=== PATIENT | male | born 1945 | race Two or more races ===

== ENCOUNTER 2021-07-02 14:07 | Inpatient (IN) | payer OTHER, MEDICAID ==
[~2021-07-02] VITALS: Ht 160 cm; Wt 54.4 kg
[2021-07-02] MEDS ORDERED: SODIUM CHLORIDE 0.9% 500 ML IV ONE (14:15)
[2021-07-02 15:36] LABS: Basophils # (auto) 0 10 ^3/uL (0-0.2); Basophils % (auto) 0.4 % (0.0-2.0); Eosinophils # (auto) 0 10 ^3/uL (0-0.8); Eosinophils % (auto) 0.4 % (0.0-7.0); Hematocrit 35.4 % (41.0-53.0); Hemoglobin 12.3 g/dL (13.5-17.5); Lymphocytes # (auto) 0.3 10 ^3/uL (0.4-5.4); Lymphocytes % (auto) 3.9 % (10.0-50.0); Mean Corpuscular Hgb Conc. 34.8 g/dL (32.0-36.0); Mean Corpuscular Volume 91.8 fL (80.0-100.0); Monocytes # (auto) 0.7 10 ^3/uL (0-1.3); Monocytes % (auto) 7.9 % (0.0-12.0); Neutrophils # (auto) 7.3 10 ^3/uL (1.6-8.6); Neutrophils % (auto) 87.4 % (37.0-80.0); Red Blood Cells 3.86 10^6/uL (4.5-5.90); Red Cell Distribution Width 13.8 % (11.8-14.3); White Blood Cell 8.4 10^3/uL (4.4-10.8)
[2021-07-02 15:53] LABS: INR 1.24 (0.9-1.15); Partial Thromboplastin Time 29.7 sec (23.6-33.0)
[2021-07-02 16:03] LABS: Calcium 9.1 mg/dL (8.5-10.1)
[2021-07-02 16:08] LABS: Bilirubin, Total 0.5 mg/dL (0.2-1.0); Total Protein 7.1 g/dL (6.4-8.2)
[2021-07-02 16:13] LABS: Urine Bacteria NONE SEEN /hpf (None Seen); Urine Blood 1+ /uL (Negative); Urine Mucus FEW (None Seen); Urine Specific Gravity 1.019 (1.001-1.035); Urine WBC 6 /hpf (0 - 3)
[2021-07-02] MEDS ORDERED: MORPHINE SULFATE INJECTION 2 MG/ML SYRG IV PRN (21:00)
[2021-07-02] MEDS ORDERED: ALBUMIN 5% 250 ML IV ONE (21:00)
[2021-07-02] MEDS ORDERED: ACETAMINOPHEN 325 MG TAB PO PRN (21:00)
[2021-07-02] MEDS ORDERED: cefTRIAXone 1GM/50ML D5W 50 ML IV ONE (21:00)
[2021-07-02] MEDS ORDERED: NITROGLYCERIN 0.4 MG SL TAB SL PRN (21:00)
[2021-07-02] MEDS ORDERED: ONDANSETRON HCL 4 MG/2 ML VIAL IV PRN (21:00)
[2021-07-02] MEDS ORDERED: SODIUM CHLORIDE 0.9% 1,000 ML IV ONE (21:00)
[2021-07-03] VITALS (51 sets, daily range): BP systolic 104–203; BP diastolic 29–115
[2021-07-03 05:50] LABS: Basophils # (auto) 0.1 10 ^3/uL (0-0.2); Basophils % (auto) 0.8 % (0.0-2.0); Eosinophils # (auto) 0.3 10 ^3/uL (0-0.8); Eosinophils % (auto) 3.9 % (0.0-7.0); Hematocrit 33.5 % (41.0-53.0); Hemoglobin 11.8 g/dL (13.5-17.5); Lymphocytes # (auto) 1.6 10 ^3/uL (0.4-5.4); Lymphocytes % (auto) 20.4 % (10.0-50.0); Mean Corpuscular Hemoglobin 32.1 pg (28.0-32.0); Mean Corpuscular Hgb Conc. 35.4 g/dL (32.0-36.0); Mean Corpuscular Volume 90.8 fL (80.0-100.0); Monocytes # (auto) 1.4 10 ^3/uL (0-1.3); Monocytes % (auto) 17.9 % (0.0-12.0); Neutrophils # (auto) 4.4 10 ^3/uL (1.6-8.6); Nucleated Red Blood Cells % 0.1 %; Red Blood Cells 3.69 10^6/uL (4.5-5.90); Red Cell Distribution Width 13.8 % (11.8-14.3); White Blood Cell 7.8 10^3/uL (4.4-10.8)
[2021-07-03 05:58] LABS: Calcium 9.5 mg/dL (8.5-10.1)
[2021-07-03 06:00] LABS: BUN/Creatinine Ratio 12.7
[2021-07-03] MEDS: CLOPIDOGREL BISULFATE 75 MG TAB PO SCH (07:46)
[2021-07-03] MEDS: DOPamine 1600MCG/ML D5W 250 ML IV SCH (07:46)
[2021-07-03] MEDS ORDERED: DILT60TA PO (09:57)
[2021-07-03] MEDS ORDERED: ASPI-543 PO (10:00)
[2021-07-03] MEDS ORDERED: ENOXAPARIN SOD 40 MG/0.4 ML SYRINGE SC SCH (10:00)
[2021-07-03] MEDS ORDERED: CHOL20007 OR (10:00)
[2021-07-03] MEDS ORDERED: CLOP75TA70 PO (10:00)
[2021-07-03] MEDS ORDERED: RISP1TAB63 PO ×2 (10:00)
[2021-07-03] MEDS ORDERED: DIVA250T4 PO (10:00)
[2021-07-03] MEDS ORDERED: cefTRIAXone 1GM/50ML D5W 50 ML IV SCH (22:00)
[2021-07-04] VITALS (48 sets, daily range): BP systolic 131–183; BP diastolic 66–104
[2021-07-04] MEDS: hydrALAZINE HCL 20 MG/ML VL IV PRN ×2 (02:48→12:26)
[2021-07-04] MEDS: DOPamine 1600MCG/ML D5W 250 ML IV SCH (05:26)
[2021-07-04] MEDS: CLOPIDOGREL BISULFATE 75 MG TAB PO SCH (09:57)
[2021-07-04] MEDS: amLODIPine BESYLATE 5 MG TAB PO SCH (11:28)
[2021-07-05] VITALS (20 sets, daily range): BP systolic 116–168; BP diastolic 67–104
[2021-07-05] MEDS: hydrALAZINE HCL 20 MG/ML VL IV PRN (04:41)
[2021-07-05] MEDS: CLOPIDOGREL BISULFATE 75 MG TAB PO SCH (09:56)
[2021-07-05] MEDS: amLODIPine BESYLATE 5 MG TAB PO SCH (09:56)
[2021-07-06 05:00] VITALS: BP 143/75
[2021-07-06 09:00] VITALS: BP 127/65
[2021-07-06] MEDS: CLOPIDOGREL BISULFATE 75 MG TAB PO SCH (10:12)
[2021-07-06] MEDS: amLODIPine BESYLATE 5 MG TAB PO SCH (10:12)
[2021-07-06] MEDS ORDERED: AML5T PO (11:11)
[2021-07-06 13:31] VITALS: BP 149/75
[2021-07-06 13:56] VITALS: BP 140/77
== END 2021-07-06 13:40 | disposition home or self-care (01) | DRG 310 ==
LOC: EDBD 14:07 → ER 14:07 → TELE 20:57 → ICU WEST 07-03 07:46 → TELE-EAST 07-05 11:36
PROVIDERS: ADMIT Nurse Practitioner; ATTEND Internal Medicine
DX: R00.1 Bradycardia, unspecified (principal); I95.9 Hypotension, unspecified; R50.9 Fever, unspecified; F03.90 Unspecified dementia, unspecified severity, without behavioral disturbance, psychotic disturbance, mood disturbance, and anxiety; F31.9 Bipolar disorder, unspecified; I10 Essential (primary) hypertension; J44.9 Chronic obstructive pulmonary disease, unspecified; Z86.73 Personal history of transient ischemic attack (TIA), and cerebral infarction without residual deficits; Z20.822 Contact with and (suspected) exposure to COVID-19
CPT/HCPCS: 36415; 70450; 71045; 80048; 80053; 80164; 81001; 83605; 83735; 84484; 85025; 85610; 85730; 87040; 87081; 93005; 93306; 96361; 96365; 96368; 97116; 97163; 97530; G0378; J0696

== ENCOUNTER 2021-10-04 09:45 | Emergency (ER) | payer OTHER, MEDICAID ==
[~2021-10-04] VITALS: Ht 167.6 cm; Wt 63.5 kg
[~2021-10-04 09:45] MED LIST: AML5T PO; ASPI-543 PO; CHOL20007 OR; CLOP75TA70 PO; DILT60TA PO; DIVA250T4 PO; RISP1TAB63 PO
[2021-10-04 11:37] LABS: Urine Bacteria NONE SEEN /hpf (None Seen); Urine Blood 3+ /uL (Negative); Urine WBC 46 /hpf (0 - 3)
[2021-10-04] MEDS ORDERED: cefTRIAXone 1GM/50ML D5W 50 ML IV ONE (21:45)
[2021-10-04] MEDS ORDERED: NITR-87 PO (21:50)
[2021-10-04] MEDS ORDERED: cefTRIAXone SOD 1,000 MG VL IM ONE (22:45)
[2021-10-05 07:30] VITALS: BP 131/77
== END 2021-10-05 08:30 | disposition home or self-care (01) ==
LOC: ER 09:45 → EDBD 09:45 → ER 10-05 08:22
DX: N12 Tubulo-interstitial nephritis, not specified as acute or chronic (principal); K80.20 Calculus of gallbladder without cholecystitis without obstruction; J44.9 Chronic obstructive pulmonary disease, unspecified; I10 Essential (primary) hypertension; Z86.73 Personal history of transient ischemic attack (TIA), and cerebral infarction without residual deficits
CPT/HCPCS: 74176; 81001; 96372; 99285; J0696

== ENCOUNTER 2022-10-08 12:12 | Inpatient (IN) | payer OTHER, MEDICAID ==
[~2022-10-08] VITALS: Ht 170.2 cm; Wt 55.5 kg
[~2022-10-08 12:12] MED LIST changes: +NITR-87 PO
[2022-10-08 13:00] VITALS: PULSE 80; RESP 25; O2SAT 100
[2022-10-08] MEDS ORDERED: SODIUM CHLORIDE 0.9% 1,550 ML IV ONE (13:45)
[2022-10-08] MEDS ORDERED: levoFLOXacin 500MG 100 ML IV ONE (13:45)
[2022-10-08 14:43] LABS: Basophils # (auto) 0 10 ^3/uL (0-0.2); Basophils % (auto) 0.2 % (0.0-2.0); Eosinophils # (auto) 0 10 ^3/uL (0-0.8); Hematocrit 35.4 % (41.0-53.0); Hemoglobin 11.7 g/dL (13.5-17.5); Lymphocytes # (auto) 1.1 10 ^3/uL (0.4-5.4); Mean Corpuscular Hemoglobin 31.4 pg (28.0-32.0); Mean Corpuscular Hgb Conc. 33.1 g/dL (32.0-36.0); Mean Corpuscular Volume 94.7 fL (80.0-100.0); Monocytes # (auto) 2.5 10 ^3/uL (0-1.3); Monocytes % (auto) 11.5 % (0.0-12.0); Neutrophils # (auto) 18.2 10 ^3/uL (1.6-8.6); Neutrophils % (auto) 83.3 % (37.0-80.0); Red Blood Cells 3.74 10^6/uL (4.5-5.90); Red Cell Distribution Width 13.2 % (11.8-14.3); White Blood Cell 21.9 10^3/uL (4.4-10.8)
[2022-10-08 14:55] LABS: INR 1.22 (0.9-1.15)
[2022-10-08 15:00] LABS: Albumin 2.3 g/dL (3.4-5.0); BUN/Creatinine Ratio 30.8 (10.0-20.0); Calcium 9.1 mg/dL (8.5-10.1)
[2022-10-08 15:03] LABS: Bilirubin, Total 0.3 mg/dL (0.2-1.0); Total Protein 5.9 g/dL (6.4-8.2)
[2022-10-08 15:27] LABS: Urine Bacteria NONE SEEN /hpf (None Seen); Urine Blood Negative /uL (Negative); Urine Hyaline Cast FEW /lpf (0 - 2); Urine Mucus FEW (None Seen); Urine Specific Gravity 1.029 (1.001-1.035); Urine WBC 5 /hpf (0 - 3)
[2022-10-08 15:32] LABS: Alcohol, Urine < 3.0 mg/dL (0-10); Amphetamine Screen, Urine NEGATIVE (NEGATIVE); Barbiturate Scree,Urine NEGATIVE (NEGATIVE); Benzodiazephine Screen, Urine NEGATIVE (NEGATIVE); Cannabinoid Screen, Urine NEGATIVE (NEGATIVE); Cocaine Screen, Urine NEGATIVE (NEGATIVE); Opiate Scree,Urine NEGATIVE (NEGATIVE); Phencyclidine Screen, Urine NEGATIVE (NEGATIVE)
[2022-10-08] MEDS ORDERED: VANCOMYCIN 1GM/250ML 250 ML IV ONE (17:00)
[2022-10-08] MEDS: NOREPINEPHRINE 8 MG/250ML KIT 250 ML IV SCH (17:32)
[2022-10-08 19:25] VITALS: RESP 20; O2SAT 96
[2022-10-08] MEDS ORDERED: SODIUM CHLORIDE 0.9% 1,000 ML IV SCH (21:15)
[2022-10-08] MEDS ORDERED: IPRATROPIUM BROM 0.5 MG/2.5ML INH SOL NEB PRN (21:15)
[2022-10-08] MEDS ORDERED: ONDANSETRON HCL 4 MG/2 ML VIAL IV PRN (21:15)
[2022-10-08] MEDS ORDERED: MORPHINE SULFATE INJ 2 MG/ml SYRG IV PRN (21:15)
[2022-10-08] MEDS ORDERED: ALBUTEROL SULF 2.5 MG/0.5ML(0.5%) NEB SOLN NEB PRN (21:15)
[2022-10-08] MEDS ORDERED: NITROGLYCERIN 0.4 MG SL TAB SL PRN (21:15)
[2022-10-08] MEDS: ATORVASTATIN 20 MG TAB PO SCH (22:43)
[2022-10-08 23:00] VITALS: BP 132/81; PULSE 88; RESP 28; O2SAT 96
[2022-10-09] VITALS (102 sets, daily range): BP systolic 79–155; BP diastolic 31–82; PULSE 61–112; RESP 15–52; TEMP 97.5–98.3; O2SAT 90–100
[2022-10-09 02:39] LABS: Hematocrit 36.4 % (41.0-53.0); Hemoglobin 11.7 g/dL (13.5-17.5)
[2022-10-09 05:55] LABS: Potassium 4.1 mmol/L (3.5-5.1)
[2022-10-09 05:58] LABS: Basophils # (auto) 0 10 ^3/uL (0-0.2); Basophils % (auto) 0.2 % (0.0-2.0); Eosinophils # (auto) 0 10 ^3/uL (0-0.8); Eosinophils % (auto) 0.2 % (0.0-7.0); Hematocrit 33.2 % (41.0-53.0); Lymphocytes # (auto) 0.8 10 ^3/uL (0.4-5.4); Lymphocytes % (auto) 3.9 % (10.0-50.0); Mean Corpuscular Hemoglobin 31.4 pg (28.0-32.0); Mean Corpuscular Hgb Conc. 33.1 g/dL (32.0-36.0); Mean Corpuscular Volume 94.9 fL (80.0-100.0); Monocytes % (auto) 10.2 % (0.0-12.0); Neutrophils # (auto) 16.5 10 ^3/uL (1.6-8.6); Neutrophils % (auto) 85.5 % (37.0-80.0); Red Cell Distribution Width 13.2 % (11.8-14.3); White Blood Cell 19.3 10^3/uL (4.4-10.8)
[2022-10-09 06:07] LABS: Albumin 1.8 g/dL (3.4-5.0); BUN/Creatinine Ratio 37.7 (10.0-20.0); Bilirubin, Total 0.4 mg/dL (0.2-1.0); Calcium 9.2 mg/dL (8.5-10.1); Total Protein 5.8 g/dL (6.4-8.2)
[2022-10-09] MEDS: CLOPIDOGREL BISULFATE 75 MG TAB PO SCH ×2 (08:11→08:24)
[2022-10-09] MEDS: ASPirin 81 mg TAB PO SCH ×2 (08:12→08:24)
[2022-10-09] MEDS ORDERED: cefTRIAXone 1GM/50ML D5W 50 ML IV SCH (09:00)
[2022-10-09] MEDS ORDERED: dilTIAZem 120MG ER CAP PO SCH (10:00)
[2022-10-09] MEDS ORDERED: PANTOPRAZOLE 40 MG TAB PO SCH (10:00)
[2022-10-09] MEDS ORDERED: amLODIPine BESYLATE 5 MG TAB PO SCH (10:00)
[2022-10-09] MEDS ORDERED: risperiDONE 1 MG TAB PO SCH (10:00)
[2022-10-09] MEDS ORDERED: PANT40TA2 PO (10:44)
[2022-10-09] MEDS ORDERED: ALLO100T PO (11:00)
[2022-10-09] MEDS ORDERED: LIDOCAINE 2%HCL (LOCAL ANESTH.) INJ 10ml MDV ONE (12:10)
[2022-10-09] MEDS ORDERED: fentaNYL CITRATE 100 MCG/2 ML VL ONE (12:53)
[2022-10-09] MEDS: NOREPINEPHRINE 8 MG/250ML KIT 250 ML IV SCH (14:33)
[2022-10-09] MEDS: IPRATROPIUM BROM 0.5 MG/2.5ML INH SOL NEB SCH (18:54)
[2022-10-09] MEDS: ALBUTEROL SULF 2.5 MG/0.5ML(0.5%) NEB SOLN NEB SCH (18:54)
[2022-10-09] MEDS: ATORVASTATIN 20 MG TAB PO SCH (22:00)
[2022-10-09] MEDS: risperiDONE 1 MG TAB PO SCH (22:00)
[2022-10-09] MEDS ORDERED: PIPERACILLIN-TAZOB 3.375GM 100 ML IV SCH (22:00)
[2022-10-10] VITALS (103 sets, daily range): BP systolic 68–186; BP diastolic 35–102; PULSE 53–126; RESP 11–44; TEMP 98.2–99.5; O2SAT 88–99
[2022-10-10] MEDS: ALBUTEROL SULF 2.5 MG/0.5ML(0.5%) NEB SOLN NEB SCH ×4 (00:44→18:10)
[2022-10-10] MEDS: IPRATROPIUM BROM 0.5 MG/2.5ML INH SOL NEB SCH ×4 (00:44→18:09)
[2022-10-10] MEDS: NOREPINEPHRINE 8 MG/250ML KIT 250 ML IV SCH ×2 (01:00→08:38)
[2022-10-10] MEDS: PIPERACILLIN-TAZOB 3.375GM 100 ML IV SCH ×3 (04:22→21:07)
[2022-10-10 04:52] LABS: Basophils # (auto) 0 10 ^3/uL (0-0.2); Basophils % (auto) 0.2 % (0.0-2.0); Eosinophils # (auto) 0 10 ^3/uL (0-0.8); Eosinophils % (auto) 0.2 % (0.0-7.0); Hematocrit 35.2 % (41.0-53.0); Hemoglobin 11.3 g/dL (13.5-17.5); Lymphocytes # (auto) 1.2 10 ^3/uL (0.4-5.4); Lymphocytes % (auto) 6.3 % (10.0-50.0); Mean Corpuscular Hemoglobin 30.5 pg (28.0-32.0); Mean Corpuscular Hgb Conc. 32.2 g/dL (32.0-36.0); Mean Corpuscular Volume 94.9 fL (80.0-100.0); Monocytes % (auto) 10.8 % (0.0-12.0); Neutrophils # (auto) 15.6 10 ^3/uL (1.6-8.6); Neutrophils % (auto) 82.5 % (37.0-80.0); Nucleated Red Blood Cells % 0.1 %; Red Blood Cells 3.71 10^6/uL (4.5-5.90); Red Cell Distribution Width 13.5 % (11.8-14.3); White Blood Cell 18.9 10^3/uL (4.4-10.8)
[2022-10-10 05:01] LABS: Albumin 1.8 g/dL (3.4-5.0); Calcium 9.2 mg/dL (8.5-10.1); Magnesium 2.3 mg/dL (1.6-2.6); Potassium 4.3 mmol/L (3.5-5.1)
[2022-10-10 05:04] LABS: BUN/Creatinine Ratio 45.6 (10.0-20.0); Bilirubin, Total 0.3 mg/dL (0.2-1.0); Phosphorus 1.8 mg/dL (2.5-4.90)
[2022-10-10] MEDS ORDERED: SODIUM PHOSPHATES 24 MEQ in SODIUM CHL 0.9% 100 ML IV ONE (10:15)
[2022-10-10] MEDS: ASPirin 81 mg TAB PO SCH (11:06)
[2022-10-10] MEDS: Ensure Enlive Strawberry 8oz Bottle PO SCH (18:26)
[2022-10-10] MEDS: Pro-Stat SF 30ml Vanilla PO SCH (18:26)
[2022-10-10 19:57] LABS: INR 1.16 (0.9-1.15)
[2022-10-10] MEDS: ACETAMINOPHEN 325 MG TAB PO PRN (20:46)
[2022-10-10] MEDS: ATORVASTATIN 20 MG TAB PO SCH (22:09)
[2022-10-10] MEDS: risperiDONE 1 MG TAB PO SCH (22:12)
[2022-10-11] VITALS (100 sets, daily range): BP systolic 78–144; BP diastolic 33–90; PULSE 53–110; RESP 15–48; TEMP 97.6–100.3; O2SAT 90–99
[2022-10-11] MEDS: IPRATROPIUM BROM 0.5 MG/2.5ML INH SOL NEB SCH ×4 (00:23→18:54)
[2022-10-11] MEDS: ALBUTEROL SULF 2.5 MG/0.5ML(0.5%) NEB SOLN NEB SCH ×4 (00:23→18:54)
[2022-10-11] MEDS: PIPERACILLIN-TAZOB 3.375GM 100 ML IV SCH ×3 (04:17→20:24)
[2022-10-11 04:57] LABS: Basophils # (auto) 0 10 ^3/uL (0-0.2); Basophils % (auto) 0.2 % (0.0-2.0); Eosinophils # (auto) 0.1 10 ^3/uL (0-0.8); Eosinophils % (auto) 1.2 % (0.0-7.0); Hematocrit 33.6 % (41.0-53.0); Hemoglobin 11.2 g/dL (13.5-17.5); Lymphocytes # (auto) 1.6 10 ^3/uL (0.4-5.4); Lymphocytes % (auto) 14.2 % (10.0-50.0); Mean Corpuscular Hgb Conc. 33.3 g/dL (32.0-36.0); Mean Corpuscular Volume 93.1 fL (80.0-100.0); Monocytes # (auto) 1.9 10 ^3/uL (0-1.3); Monocytes % (auto) 16.7 % (0.0-12.0); Neutrophils # (auto) 7.8 10 ^3/uL (1.6-8.6); Neutrophils % (auto) 67.7 % (37.0-80.0); Nucleated Red Blood Cells % 0.1 %; Red Blood Cells 3.61 10^6/uL (4.5-5.90); Red Cell Distribution Width 13.6 % (11.8-14.3); White Blood Cell 11.6 10^3/uL (4.4-10.8)
[2022-10-11 05:18] LABS: BUN/Creatinine Ratio 37.5 (10.0-20.0); Calcium 8.7 mg/dL (8.5-10.1); Potassium 3.2 mmol/L (3.5-5.1)
[2022-10-11] MEDS: NOREPINEPHRINE 8 MG/250ML KIT 250 ML IV SCH (09:54)
[2022-10-11] MEDS: Pro-Stat SF 30ml Vanilla PO SCH ×2 (09:56→18:56)
[2022-10-11] MEDS: Ensure Enlive Strawberry 8oz Bottle PO SCH ×2 (09:57→18:56)
[2022-10-11] MEDS: ASPirin 81 mg TAB PO SCH (09:59)
[2022-10-11] MEDS ORDERED: POTASSIUM CHL 20 Meq TABLET PO ONE (10:45)
[2022-10-11] MEDS ORDERED: FUROSEMIDE 20 MG/2 ML VIAL IV ONE (10:45)
[2022-10-11] MEDS ORDERED: POTASSIUM PHOSPHATE 26.4 MEQ in SODIUM CHL 0.9% 100 ML IV ONE (12:00)
[2022-10-11] MEDS ORDERED: ALBUMIN 25% 100 ML IV ONE (12:15)
[2022-10-11] MEDS ORDERED: LIDOCAINE 1% (LOCAL ANESTH.) PF 5ml SDV ID ONE (17:15)
[2022-10-11] MEDS: risperiDONE 1 MG TAB PO SCH (20:24)
[2022-10-11] MEDS: ATORVASTATIN 20 MG TAB PO SCH (20:25)
[2022-10-11] MEDS: SODIUM CHLOR 0.9% PF (SALINE LOCK) 10ML VIAL/SYR IV SCH (20:25)
[2022-10-12] VITALS (112 sets, daily range): BP systolic 75–211; BP diastolic 10–132; PULSE 66–117; RESP 18–42; TEMP 98.5–99.4; O2SAT 91–100
[2022-10-12] MEDS: NOREPINEPHRINE 8 MG/250ML KIT 250 ML IV SCH ×2 (00:12→19:58)
[2022-10-12] MEDS: ALBUTEROL SULF 2.5 MG/0.5ML(0.5%) NEB SOLN NEB SCH ×4 (00:13→19:27)
[2022-10-12] MEDS: IPRATROPIUM BROM 0.5 MG/2.5ML INH SOL NEB SCH ×4 (00:13→19:27)
[2022-10-12] MEDS: PIPERACILLIN-TAZOB 3.375GM 100 ML IV SCH ×3 (04:05→19:57)
[2022-10-12 04:49] LABS: Basophils # (auto) 0 10 ^3/uL (0-0.2); Basophils % (auto) 0.4 % (0.0-2.0); Eosinophils # (auto) 0.1 10 ^3/uL (0-0.8); Eosinophils % (auto) 1.3 % (0.0-7.0); Hematocrit 32.7 % (41.0-53.0); Lymphocytes # (auto) 1.3 10 ^3/uL (0.4-5.4); Lymphocytes % (auto) 12.5 % (10.0-50.0); Mean Corpuscular Hemoglobin 31.4 pg (28.0-32.0); Mean Corpuscular Hgb Conc. 33.8 g/dL (32.0-36.0); Mean Corpuscular Volume 92.9 fL (80.0-100.0); Monocytes # (auto) 1.9 10 ^3/uL (0-1.3); Monocytes % (auto) 17.9 % (0.0-12.0); Neutrophils # (auto) 7.2 10 ^3/uL (1.6-8.6); Neutrophils % (auto) 67.9 % (37.0-80.0); Red Blood Cells 3.52 10^6/uL (4.5-5.90); Red Cell Distribution Width 13.3 % (11.8-14.3); White Blood Cell 10.6 10^3/uL (4.4-10.8)
[2022-10-12 05:26] LABS: Albumin 2.2 g/dL (3.4-5.0); Calcium 8.8 mg/dL (8.5-10.1); Magnesium 2.3 mg/dL (1.6-2.6)
[2022-10-12 05:30] LABS: BUN/Creatinine Ratio 25.5 (10.0-20.0); Bilirubin, Total 0.6 mg/dL (0.2-1.0); Phosphorus 2.4 mg/dL (2.5-4.90)
[2022-10-12] MEDS: Pro-Stat SF 30ml Vanilla PO SCH ×2 (09:01→19:22)
[2022-10-12] MEDS: Ensure Enlive Strawberry 8oz Bottle PO SCH ×2 (09:01→19:22)
[2022-10-12] MEDS: ASPirin 81 mg TAB PO SCH (10:08)
[2022-10-12] MEDS: SODIUM CHLOR 0.9% PF (SALINE LOCK) 10ML VIAL/SYR IV SCH ×2 (10:09→19:58)
[2022-10-12] MEDS: ATORVASTATIN 20 MG TAB PO SCH (22:03)
[2022-10-12] MEDS: risperiDONE 1 MG TAB PO SCH (22:03)
[2022-10-13] VITALS (111 sets, daily range): BP systolic 84–164; BP diastolic 20–95; PULSE 70–123; RESP 22–51; TEMP 99–99.6; O2SAT 5–100
[2022-10-13] MEDS: ALBUTEROL SULF 2.5 MG/0.5ML(0.5%) NEB SOLN NEB SCH ×5 (00:03→23:53)
[2022-10-13] MEDS: IPRATROPIUM BROM 0.5 MG/2.5ML INH SOL NEB SCH ×5 (00:03→23:53)
[2022-10-13] MEDS: PIPERACILLIN-TAZOB 3.375GM 100 ML IV SCH ×3 (03:18→21:09)
[2022-10-13 05:33] LABS: Basophils # (auto) 0.1 10 ^3/uL (0-0.2); Basophils % (auto) 0.4 % (0.0-2.0); Eosinophils # (auto) 0.1 10 ^3/uL (0-0.8); Eosinophils % (auto) 1.2 % (0.0-7.0); Hematocrit 32.6 % (41.0-53.0); Hemoglobin 10.9 g/dL (13.5-17.5); Lymphocytes # (auto) 1.5 10 ^3/uL (0.4-5.4); Lymphocytes % (auto) 12.2 % (10.0-50.0); Mean Corpuscular Hemoglobin 31.2 pg (28.0-32.0); Mean Corpuscular Hgb Conc. 33.3 g/dL (32.0-36.0); Mean Corpuscular Volume 93.6 fL (80.0-100.0); Monocytes % (auto) 16.4 % (0.0-12.0); Neutrophils # (auto) 8.7 10 ^3/uL (1.6-8.6); Neutrophils % (auto) 69.8 % (37.0-80.0); Nucleated Red Blood Cells % 0.1 %; Red Blood Cells 3.48 10^6/uL (4.5-5.90); Red Cell Distribution Width 13.3 % (11.8-14.3); White Blood Cell 12.5 10^3/uL (4.4-10.8)
[2022-10-13 05:42] LABS: Calcium 8.8 mg/dL (8.5-10.1); Potassium 4.3 mmol/L (3.5-5.1)
[2022-10-13 05:46] LABS: Albumin 1.9 g/dL (3.4-5.0); BUN/Creatinine Ratio 24.6 (10.0-20.0); Magnesium 2.2 mg/dL (1.6-2.6)
[2022-10-13 05:47] LABS: Bilirubin, Total 0.4 mg/dL (0.2-1.0); Total Protein 5.8 g/dL (6.4-8.2)
[2022-10-13] MEDS: SODIUM CHLOR 0.9% PF (SALINE LOCK) 10ML VIAL/SYR IV SCH ×2 (09:35→21:09)
[2022-10-13] MEDS: ASPirin 81 mg TAB PO SCH (09:35)
[2022-10-13] MEDS: Ensure Enlive Strawberry 8oz Bottle PO SCH ×2 (09:37→18:46)
[2022-10-13] MEDS: Pro-Stat SF 30ml Vanilla PO SCH ×2 (09:37→18:46)
[2022-10-13] MEDS: ATORVASTATIN 20 MG TAB PO SCH (21:09)
[2022-10-13] MEDS: risperiDONE 1 MG TAB PO SCH (21:42)
[2022-10-14] VITALS (90 sets, daily range): BP systolic 88–133; BP diastolic 32–66; PULSE 69–114; RESP 20–85; TEMP 98.1–99.4; O2SAT 85–100
[2022-10-14] MEDS: PIPERACILLIN-TAZOB 3.375GM 100 ML IV SCH ×3 (03:51→21:14)
[2022-10-14 05:42] LABS: Basophils # (auto) 0.1 10 ^3/uL (0-0.2); Basophils % (auto) 0.4 % (0.0-2.0); Eosinophils # (auto) 0.1 10 ^3/uL (0-0.8); Hematocrit 31.9 % (41.0-53.0); Hemoglobin 10.4 g/dL (13.5-17.5); Lymphocytes # (auto) 1.5 10 ^3/uL (0.4-5.4); Lymphocytes % (auto) 11.5 % (10.0-50.0); Mean Corpuscular Hemoglobin 30.5 pg (28.0-32.0); Mean Corpuscular Hgb Conc. 32.5 g/dL (32.0-36.0); Mean Corpuscular Volume 93.6 fL (80.0-100.0); Monocytes # (auto) 1.7 10 ^3/uL (0-1.3); Monocytes % (auto) 12.5 % (0.0-12.0); Neutrophils # (auto) 9.9 10 ^3/uL (1.6-8.6); Neutrophils % (auto) 74.6 % (37.0-80.0); Red Blood Cells 3.41 10^6/uL (4.5-5.90); Red Cell Distribution Width 13.4 % (11.8-14.3); White Blood Cell 13.3 10^3/uL (4.4-10.8)
[2022-10-14 05:54] LABS: Albumin 1.7 g/dL (3.4-5.0); Calcium 8.9 mg/dL (8.5-10.1); Magnesium 2.4 mg/dL (1.6-2.6); Potassium 4.4 mmol/L (3.5-5.1)
[2022-10-14 05:59] LABS: BUN/Creatinine Ratio 36.5 (10.0-20.0); Bilirubin, Total 0.4 mg/dL (0.2-1.0); Total Protein 5.9 g/dL (6.4-8.2)
[2022-10-14] MEDS: IPRATROPIUM BROM 0.5 MG/2.5ML INH SOL NEB SCH ×3 (06:10→18:20)
[2022-10-14] MEDS: ALBUTEROL SULF 2.5 MG/0.5ML(0.5%) NEB SOLN NEB SCH ×3 (06:10→18:20)
[2022-10-14] MEDS: ASPirin 81 mg TAB PO SCH (09:15)
[2022-10-14] MEDS: Pro-Stat SF 30ml Vanilla PO SCH ×2 (09:17→18:00)
[2022-10-14] MEDS: SODIUM CHLOR 0.9% PF (SALINE LOCK) 10ML VIAL/SYR IV SCH ×2 (09:17→22:00)
[2022-10-14] MEDS: Ensure Enlive Strawberry 8oz Bottle PO SCH ×2 (09:17→18:00)
[2022-10-14] MEDS: NOREPINEPHRINE 8 MG/250ML KIT 250 ML IV SCH (11:10)
[2022-10-14] MEDS: risperiDONE 1 MG TAB PO SCH (22:53)
[2022-10-14] MEDS: ATORVASTATIN 20 MG TAB PO SCH (22:54)
[2022-10-15] VITALS (36 sets, daily range): BP systolic 90–149; BP diastolic 42–70; PULSE 64–115; RESP 18–41; TEMP 97.9–98.9; O2SAT 90–100
[2022-10-15] MEDS: ALBUTEROL SULF 2.5 MG/0.5ML(0.5%) NEB SOLN NEB SCH ×5 (00:06→23:43)
[2022-10-15] MEDS: IPRATROPIUM BROM 0.5 MG/2.5ML INH SOL NEB SCH ×5 (00:07→23:43)
[2022-10-15] MEDS: PIPERACILLIN-TAZOB 3.375GM 100 ML IV SCH ×3 (04:34→21:16)
[2022-10-15] MEDS: Ensure Enlive Strawberry 8oz Bottle PO SCH ×2 (08:00→18:46)
[2022-10-15] MEDS: ASPirin 81 mg TAB PO SCH (08:48)
[2022-10-15] MEDS: NOREPINEPHRINE 8 MG/250ML KIT 250 ML IV SCH (08:49)
[2022-10-15] MEDS: SODIUM CHLOR 0.9% PF (SALINE LOCK) 10ML VIAL/SYR IV SCH ×2 (08:49→22:22)
[2022-10-15] MEDS: Pro-Stat SF 30ml Vanilla PO SCH ×2 (08:49→18:47)
[2022-10-15] MEDS: ATORVASTATIN 20 MG TAB PO SCH (22:20)
[2022-10-15] MEDS: risperiDONE 1 MG TAB PO SCH (22:20)
[2022-10-16] VITALS (35 sets, daily range): BP systolic 99–131; BP diastolic 42–63; PULSE 66–106; RESP 18–38; TEMP 97.2–98.9; O2SAT 93–99
[2022-10-16] MEDS: PIPERACILLIN-TAZOB 3.375GM 100 ML IV SCH ×3 (04:20→20:17)
[2022-10-16 04:52] LABS: Basophils # (auto) 0.1 10 ^3/uL (0-0.2); Eosinophils # (auto) 0.1 10 ^3/uL (0-0.8); Eosinophils % (auto) 1.3 % (0.0-7.0); Hematocrit 28.6 % (41.0-53.0); Hemoglobin 9.7 g/dL (13.5-17.5); Lymphocytes # (auto) 1.1 10 ^3/uL (0.4-5.4); Mean Corpuscular Hemoglobin 31.3 pg (28.0-32.0); Mean Corpuscular Volume 92.1 fL (80.0-100.0); Monocytes # (auto) 1.2 10 ^3/uL (0-1.3); Monocytes % (auto) 11.5 % (0.0-12.0); Neutrophils # (auto) 7.8 10 ^3/uL (1.6-8.6); Neutrophils % (auto) 75.2 % (37.0-80.0); Nucleated Red Blood Cells % 0.1 %; Red Blood Cells 3.11 10^6/uL (4.5-5.90); Red Cell Distribution Width 13.3 % (11.8-14.3); White Blood Cell 10.4 10^3/uL (4.4-10.8)
[2022-10-16 05:26] LABS: Albumin 1.7 g/dL (3.4-5.0); Calcium 9.1 mg/dL (8.5-10.1); Potassium 4.3 mmol/L (3.5-5.1)
[2022-10-16 05:31] LABS: BUN/Creatinine Ratio 41.5 (10.0-20.0); Bilirubin, Total 0.4 mg/dL (0.2-1.0); Total Protein 6.3 g/dL (6.4-8.2)
[2022-10-16] MEDS: ALBUTEROL SULF 2.5 MG/0.5ML(0.5%) NEB SOLN NEB SCH ×4 (06:39→23:50)
[2022-10-16] MEDS: IPRATROPIUM BROM 0.5 MG/2.5ML INH SOL NEB SCH ×4 (06:39→23:50)
[2022-10-16] MEDS: Pro-Stat SF 30ml Vanilla PO SCH ×2 (08:00→18:00)
[2022-10-16] MEDS: Ensure Enlive Strawberry 8oz Bottle PO SCH ×2 (08:00→18:00)
[2022-10-16] MEDS: ASPirin 81 mg TAB PO SCH (10:11)
[2022-10-16] MEDS: SODIUM CHLOR 0.9% PF (SALINE LOCK) 10ML VIAL/SYR IV SCH ×2 (10:11→22:18)
[2022-10-16 12:14] LABS: INR 1.13 (0.9-1.15); Partial Thromboplastin Time 30.8 SEC (24.5-34.5)
[2022-10-16] MEDS: NOREPINEPHRINE 8 MG/250ML KIT 250 ML IV SCH (16:15)
[2022-10-16] MEDS: risperiDONE 1 MG TAB PO SCH (22:18)
[2022-10-16] MEDS: ATORVASTATIN 20 MG TAB PO SCH (22:18)
[2022-10-17] VITALS (22 sets, daily range): BP systolic 98–125; BP diastolic 45–65; PULSE 71–121; RESP 17–37; TEMP 98.1–98.8; O2SAT 93–100
[2022-10-17] MEDS: PIPERACILLIN-TAZOB 3.375GM 100 ML IV SCH ×3 (04:42→21:02)
[2022-10-17 05:07] LABS: Basophils # (auto) 0.1 10 ^3/uL (0-0.2); Basophils % (auto) 0.8 % (0.0-2.0); Eosinophils # (auto) 0.2 10 ^3/uL (0-0.8); Eosinophils % (auto) 1.7 % (0.0-7.0); Hematocrit 28.3 % (41.0-53.0); Hemoglobin 9.4 g/dL (13.5-17.5); Lymphocytes # (auto) 1.3 10 ^3/uL (0.4-5.4); Lymphocytes % (auto) 10.8 % (10.0-50.0); Mean Corpuscular Hgb Conc. 33.1 g/dL (32.0-36.0); Mean Corpuscular Volume 93.7 fL (80.0-100.0); Monocytes # (auto) 1.5 10 ^3/uL (0-1.3); Monocytes % (auto) 12.5 % (0.0-12.0); Neutrophils # (auto) 9.2 10 ^3/uL (1.6-8.6); Neutrophils % (auto) 74.2 % (37.0-80.0); Red Blood Cells 3.02 10^6/uL (4.5-5.90); Red Cell Distribution Width 13.3 % (11.8-14.3); White Blood Cell 12.4 10^3/uL (4.4-10.8)
[2022-10-17 05:28] LABS: BUN/Creatinine Ratio 52.2 (10.0-20.0); Calcium 8.9 mg/dL (8.5-10.1); Potassium 4.1 mmol/L (3.5-5.1)
[2022-10-17] MEDS: ALBUTEROL SULF 2.5 MG/0.5ML(0.5%) NEB SOLN NEB SCH ×3 (06:34→18:15)
[2022-10-17] MEDS: IPRATROPIUM BROM 0.5 MG/2.5ML INH SOL NEB SCH ×3 (06:34→18:15)
[2022-10-17] MEDS: Ensure Enlive Strawberry 8oz Bottle PO SCH ×2 (08:00→19:30)
[2022-10-17] MEDS: Pro-Stat SF 30ml Vanilla PO SCH ×2 (08:00→19:30)
[2022-10-17] MEDS: SODIUM CHLOR 0.9% PF (SALINE LOCK) 10ML VIAL/SYR IV SCH ×2 (09:39→22:16)
[2022-10-17] MEDS: NOREPINEPHRINE 8 MG/250ML KIT 250 ML IV SCH (16:15)
[2022-10-17] MEDS: ATORVASTATIN 20 MG TAB PO SCH (22:15)
[2022-10-17] MEDS: risperiDONE 1 MG TAB PO SCH (22:15)
[2022-10-18] VITALS (70 sets, daily range): BP systolic 67–196; BP diastolic 41–125; PULSE 67–125; RESP 13–28; TEMP 97.7–98.7; O2SAT 90–100
[2022-10-18] MEDS: ALBUTEROL SULF 2.5 MG/0.5ML(0.5%) NEB SOLN NEB SCH ×4 (00:20→18:20)
[2022-10-18] MEDS: IPRATROPIUM BROM 0.5 MG/2.5ML INH SOL NEB SCH ×4 (00:20→18:20)
[2022-10-18] MEDS: PIPERACILLIN-TAZOB 3.375GM 100 ML IV SCH ×3 (04:27→20:57)
[2022-10-18 05:34] LABS: Basophils # (auto) 0.1 10 ^3/uL (0-0.2); Basophils % (auto) 0.8 % (0.0-2.0); Eosinophils # (auto) 0.1 10 ^3/uL (0-0.8); Hematocrit 27.5 % (41.0-53.0); Lymphocytes # (auto) 1.3 10 ^3/uL (0.4-5.4); Lymphocytes % (auto) 10.2 % (10.0-50.0); Mean Corpuscular Hemoglobin 30.5 pg (28.0-32.0); Mean Corpuscular Hgb Conc. 32.8 g/dL (32.0-36.0); Monocytes # (auto) 1.6 10 ^3/uL (0-1.3); Monocytes % (auto) 12.4 % (0.0-12.0); Neutrophils # (auto) 9.6 10 ^3/uL (1.6-8.6); Neutrophils % (auto) 75.6 % (37.0-80.0); Nucleated Red Blood Cells % 0.1 %; Red Blood Cells 2.96 10^6/uL (4.5-5.90); Red Cell Distribution Width 13.3 % (11.8-14.3); White Blood Cell 12.7 10^3/uL (4.4-10.8)
[2022-10-18 05:38] LABS: Albumin 1.7 g/dL (3.4-5.0); Bilirubin, Total 0.2 mg/dL (0.2-1.0); Calcium 9.2 mg/dL (8.5-10.1); Total Protein 6.4 g/dL (6.4-8.2)
[2022-10-18 05:40] LABS: INR 1.23 (0.9-1.15)
[2022-10-18] MEDS ORDERED: PHENYLEPHRINE HCL 10 MG/ML VL IV ONE (07:30)
[2022-10-18] MEDS ORDERED: fentaNYL CITRATE 100 MCG/2 ML VL ONE ×2 (07:35→08:37)
[2022-10-18] MEDS ORDERED: MIDAZOLAM HCL 2MG/2ML 2ml VIAL (1mg/ml) ONE ×2 (07:35→08:44)
[2022-10-18] MEDS ORDERED: MEPERIDINE HCL (50 MG/ML) 1 ML VIAL ONE (07:35)
[2022-10-18] MEDS: Ensure Enlive Strawberry 8oz Bottle PO SCH ×2 (07:37→17:54)
[2022-10-18] MEDS: Pro-Stat SF 30ml Vanilla PO SCH ×2 (07:37→17:54)
[2022-10-18] MEDS ORDERED: SUCCINYLCHOLINE CHLORIDE 20 MG/ML 10ML VIAL IV ONE (07:49)
[2022-10-18] MEDS ORDERED: HYDROmorphone HCL 2 MG/ML VL/or syr IV PRN ×2 (08:00→10:00)
[2022-10-18] MEDS ORDERED: ePHEDrine SULFATE 50 MG/ML AMP IV PRN (08:00)
[2022-10-18] MEDS ORDERED: MIDAZOLAM HCL 2MG/2ML 2ml VIAL (1mg/ml) IV PRN (08:00)
[2022-10-18] MEDS ORDERED: ONDANSETRON HCL 4 MG/2 ML VIAL IV PRN (08:00)
[2022-10-18] MEDS ORDERED: LABETALOL HCL 5 MG/ML 4ML SYRINGE IV PRN (08:00)
[2022-10-18] MEDS ORDERED: MORPHINE SULFATE 4 MG/ML SYR/VIAL IV PRN (08:00)
[2022-10-18] MEDS ORDERED: DexAMETHasone SOD PHOS 10MG/1ML VIAL INJ ONE (08:36)
[2022-10-18] MEDS ORDERED: PROPOFOL 10 MG/ML 20 ML IV ONE (08:36)
[2022-10-18] MEDS ORDERED: POVIDONE IODINE 10 % TOPICAL OINT 30GM TOP ONE (09:29)
[2022-10-18] MEDS: BUPIVACAINE 0.25% INJ 50ML VIAL ONE ×2 (09:46→11:29)
[2022-10-18] MEDS ORDERED: fentaNYL Drip 2500mCg/250mlNS 250 ML IV ONE (11:07)
[2022-10-18] MEDS: SODIUM CHLOR 0.9% PF (SALINE LOCK) 10ML VIAL/SYR IV SCH ×2 (11:28→22:00)
[2022-10-18] MEDS: NOREPINEPHRINE 8 MG/250ML KIT 250 ML IV SCH ×2 (11:29→17:31)
[2022-10-18] MEDS ORDERED: PHENYLEPHRINE IV 250 ML IV ONE ×3 (13:43→19:47)
[2022-10-18] MEDS: VASOPRESSIN 20 UNITS in SODIUM CHL 0.9% 99 ML IV SCH (14:45)
[2022-10-18] MEDS: PHENYLEPHRINE IV 250 ML IV SCH ×2 (15:41→17:32)
[2022-10-18 16:07] LABS: Hemoglobin 8.1 g/dL (13.5-17.5); Mean Corpuscular Hemoglobin 29.9 pg (28.0-32.0); Mean Corpuscular Hgb Conc. 32.2 g/dL (32.0-36.0); Mean Corpuscular Volume 92.8 fL (80.0-100.0); Red Blood Cells 2.69 10^6/uL (4.5-5.90); Red Cell Distribution Width 13.3 % (11.8-14.3)
[2022-10-18 16:16] LABS: Albumin 1.7 g/dL (3.4-5.0); Calcium 8.6 mg/dL (8.5-10.1); White Blood Cell 40.9 10^3/uL (4.4-10.8)
[2022-10-18 16:18] LABS: Basophils % (manual) 0 (0.0-2.0); Blast Cells 0; Eosinophils % (manual) 0 (0-7); Monocytes % (manual) 0 (0-12); Myelocytes % 0; Promyelocytes % 0; Reactive Lymphocytes 0
[2022-10-18 16:20] LABS: BUN/Creatinine Ratio 34.8 (10.0-20.0); Bilirubin, Total 0.5 mg/dL (0.2-1.0); Total Protein 6.3 g/dL (6.4-8.2)
[2022-10-18 16:37] LABS: Band Neutrophils % (manual) 7; Lymphocytes % (manual) 3 (10.0-50.0); Metamyelocytes % 2
[2022-10-18] MEDS: MIDAZOLAM DRIP 50 mg/50mL 50 ML IV SCH (17:53)
[2022-10-18] MEDS: risperiDONE 1 MG TAB PO SCH (20:13)
[2022-10-18] MEDS: ATORVASTATIN 20 MG TAB PO SCH (20:13)
[2022-10-18] MEDS: NOREPINEPHRINE BITARTRATE 32 MG in SODIUM CHL 0.9% 218 ML IV SCH (21:08)
[2022-10-18] MEDS: PHENYLEPHRINE INJ 80 MG in SODIUM CHL 0.9% 242 ML IV SCH (21:20)
[2022-10-19] VITALS (120 sets, daily range): BP systolic 60–225; BP diastolic 41–219; PULSE 71–100; RESP 13–30; TEMP 98.1–99.3; O2SAT 88–100
[2022-10-19] MEDS: ALBUTEROL SULF 2.5 MG/0.5ML(0.5%) NEB SOLN NEB SCH ×5 (00:37→23:56)
[2022-10-19] MEDS: IPRATROPIUM BROM 0.5 MG/2.5ML INH SOL NEB SCH ×5 (00:37→23:56)
[2022-10-19] MEDS: VASOPRESSIN 20 UNITS in SODIUM CHL 0.9% 99 ML IV SCH ×3 (01:52→22:34)
[2022-10-19] MEDS: PIPERACILLIN-TAZOB 3.375GM 100 ML IV SCH ×3 (03:37→20:34)
[2022-10-19 04:14] LABS: Hemoglobin 7.5 g/dL (13.5-17.5)
[2022-10-19 04:16] LABS: Hematocrit 22.4 % (41.0-53.0); Mean Corpuscular Hgb Conc. 33.4 g/dL (32.0-36.0); Mean Corpuscular Volume 92.9 fL (80.0-100.0); Red Blood Cells 2.41 10^6/uL (4.5-5.90); Red Cell Distribution Width 13.1 % (11.8-14.3); White Blood Cell 27.3 10^3/uL (4.4-10.8)
[2022-10-19 04:26] LABS: Potassium 4.7 mmol/L (3.5-5.1)
[2022-10-19 04:28] LABS: Basophils % (manual) 0 (0.0-2.0); Blast Cells 0; Eosinophils % (manual) 0 (0-7); Metamyelocytes % 0; Myelocytes % 0; Promyelocytes % 0; Reactive Lymphocytes 0
[2022-10-19 04:36] LABS: Albumin 1.7 g/dL (3.4-5.0); BUN/Creatinine Ratio 39.2 (10.0-20.0); Bilirubin, Total 0.4 mg/dL (0.2-1.0); Calcium 8.6 mg/dL (8.5-10.1); Total Protein 6.4 g/dL (6.4-8.2)
[2022-10-19] MEDS: Ensure Enlive Strawberry 8oz Bottle PO SCH ×2 (08:00→18:00)
[2022-10-19] MEDS: Pro-Stat SF 30ml Vanilla PO SCH ×2 (08:00→18:00)
[2022-10-19 09:31] LABS: Band Neutrophils % (manual) 4; Lymphocytes % (manual) 11 (10.0-50.0); Monocytes % (manual) 4 (0-12)
[2022-10-19] MEDS: fentaNYL Drip 2500mCg/250mlNS 250 ML IV SCH ×2 (11:48→22:15)
[2022-10-19] MEDS: SODIUM CHLOR 0.9% PF (SALINE LOCK) 10ML VIAL/SYR IV SCH ×2 (11:49→20:44)
[2022-10-19] MEDS ORDERED: SODIUM CHLORIDE 0.9% 1,450 ML IV ONE (12:00)
[2022-10-19] MEDS ORDERED: SODIUM CHLORIDE 0.9% 1,000 ML IV SCH (12:00)
[2022-10-19] MEDS: MIDAZOLAM DRIP 50 mg/50mL 50 ML IV SCH (14:45)
[2022-10-19] MEDS: NOREPINEPHRINE BITARTRATE 32 MG in SODIUM CHL 0.9% 218 ML IV SCH (16:42)
[2022-10-19] MEDS: PHENYLEPHRINE INJ 80 MG in SODIUM CHL 0.9% 242 ML IV SCH (17:45)
[2022-10-19] MEDS ORDERED: FUROSEMIDE 20 MG/2 ML VIAL IV ONE (18:15)
[2022-10-19] MEDS: ATORVASTATIN 20 MG TAB PO SCH (20:43)
[2022-10-19] MEDS: risperiDONE 1 MG TAB PO SCH (20:44)
[2022-10-20] VITALS (56 sets, daily range): BP systolic 97–136; BP diastolic 43–71; PULSE 75–109; RESP 16–31; TEMP 98.1–98.4; O2SAT 92–100
[2022-10-20] MEDS: PIPERACILLIN-TAZOB 3.375GM 100 ML IV SCH ×3 (04:05→19:24)
[2022-10-20 04:42] LABS: Basophils # (auto) 0 10 ^3/uL (0-0.2); Basophils % (auto) 0.3 % (0.0-2.0); Eosinophils # (auto) 0 10 ^3/uL (0-0.8); Hemoglobin 9.4 g/dL (13.5-17.5); Lymphocytes # (auto) 1.2 10 ^3/uL (0.4-5.4); Lymphocytes % (auto) 8.1 % (10.0-50.0); Mean Corpuscular Hemoglobin 29.6 pg (28.0-32.0); Mean Corpuscular Hgb Conc. 33.6 g/dL (32.0-36.0); Mean Corpuscular Volume 88.1 fL (80.0-100.0); Monocytes # (auto) 1.1 10 ^3/uL (0-1.3); Monocytes % (auto) 7.8 % (0.0-12.0); Neutrophils # (auto) 12.1 10 ^3/uL (1.6-8.6); Neutrophils % (auto) 83.8 % (37.0-80.0); Nucleated Red Blood Cells % 0.1 %; Red Blood Cells 3.18 10^6/uL (4.5-5.90); Red Cell Distribution Width 15.7 % (11.8-14.3); White Blood Cell 14.5 10^3/uL (4.4-10.8)
[2022-10-20] MEDS: ALBUTEROL SULF 2.5 MG/0.5ML(0.5%) NEB SOLN NEB SCH ×3 (06:25→18:28)
[2022-10-20] MEDS: IPRATROPIUM BROM 0.5 MG/2.5ML INH SOL NEB SCH ×3 (06:25→18:28)
[2022-10-20] MEDS: Ensure Enlive Strawberry 8oz Bottle PO SCH ×2 (08:00→19:16)
[2022-10-20] MEDS: Pro-Stat SF 30ml Vanilla PO SCH ×2 (08:00→19:16)
[2022-10-20] MEDS: SODIUM CHLOR 0.9% PF (SALINE LOCK) 10ML VIAL/SYR IV SCH ×2 (10:00→21:06)
[2022-10-20] MEDS: VASOPRESSIN 20 UNITS in SODIUM CHL 0.9% 99 ML IV SCH ×2 (11:13→22:12)
[2022-10-20] MEDS: MIDAZOLAM DRIP 50 mg/50mL 50 ML IV SCH (14:45)
[2022-10-20] MEDS: NOREPINEPHRINE BITARTRATE 32 MG in SODIUM CHL 0.9% 218 ML IV SCH (19:16)
[2022-10-20] MEDS: PHENYLEPHRINE INJ 80 MG in SODIUM CHL 0.9% 242 ML IV SCH (19:16)
[2022-10-20] MEDS: ATORVASTATIN 20 MG TAB PO SCH (21:06)
[2022-10-20] MEDS: risperiDONE 1 MG TAB PO SCH (21:07)
[2022-10-20] MEDS: fentaNYL Drip 2500mCg/250mlNS 250 ML IV SCH (22:12)
[2022-10-21] VITALS (34 sets, daily range): BP systolic 98–129; BP diastolic 42–71; PULSE 70–111; RESP 18–37; TEMP 98–98.4; O2SAT 92–100
[2022-10-21] MEDS: ALBUTEROL SULF 2.5 MG/0.5ML(0.5%) NEB SOLN NEB SCH ×4 (00:07→18:55)
[2022-10-21] MEDS: IPRATROPIUM BROM 0.5 MG/2.5ML INH SOL NEB SCH ×4 (00:07→18:55)
[2022-10-21] MEDS: PIPERACILLIN-TAZOB 3.375GM 100 ML IV SCH ×3 (03:57→20:30)
[2022-10-21 04:11] LABS: Basophils # (auto) 0.1 10 ^3/uL (0-0.2); Basophils % (auto) 0.5 % (0.0-2.0); Eosinophils # (auto) 0 10 ^3/uL (0-0.8); Eosinophils % (auto) 0.2 % (0.0-7.0); Hematocrit 26.4 % (41.0-53.0); Hemoglobin 9.1 g/dL (13.5-17.5); Lymphocytes # (auto) 1.5 10 ^3/uL (0.4-5.4); Lymphocytes % (auto) 11.1 % (10.0-50.0); Mean Corpuscular Hemoglobin 30.5 pg (28.0-32.0); Mean Corpuscular Hgb Conc. 34.4 g/dL (32.0-36.0); Mean Corpuscular Volume 88.5 fL (80.0-100.0); Monocytes % (auto) 7.8 % (0.0-12.0); Neutrophils # (auto) 10.8 10 ^3/uL (1.6-8.6); Neutrophils % (auto) 80.4 % (37.0-80.0); Nucleated Red Blood Cells % 0.1 %; Red Blood Cells 2.99 10^6/uL (4.5-5.90); Red Cell Distribution Width 15.2 % (11.8-14.3); White Blood Cell 13.4 10^3/uL (4.4-10.8)
[2022-10-21 04:18] LABS: Albumin 1.7 g/dL (3.4-5.0); Calcium 8.4 mg/dL (8.5-10.1); Magnesium 2.4 mg/dL (1.6-2.6); Potassium 3.6 mmol/L (3.5-5.1)
[2022-10-21 04:21] LABS: Bilirubin, Total 0.7 mg/dL (0.2-1.0); Total Protein 5.9 g/dL (6.4-8.2)
[2022-10-21] MEDS: Ensure Enlive Strawberry 8oz Bottle PO SCH ×2 (08:00→18:45)
[2022-10-21] MEDS: VASOPRESSIN 20 UNITS in SODIUM CHL 0.9% 99 ML IV SCH ×2 (09:27→20:30)
[2022-10-21] MEDS: Pro-Stat SF 30ml Vanilla PO SCH ×2 (11:18→18:45)
[2022-10-21] MEDS: SODIUM CHLOR 0.9% PF (SALINE LOCK) 10ML VIAL/SYR IV SCH ×2 (11:18→21:33)
[2022-10-21] MEDS: MIDAZOLAM DRIP 50 mg/50mL 50 ML IV SCH (14:45)
[2022-10-21] MEDS: NOREPINEPHRINE BITARTRATE 32 MG in SODIUM CHL 0.9% 218 ML IV SCH (17:45)
[2022-10-21] MEDS: PHENYLEPHRINE INJ 80 MG in SODIUM CHL 0.9% 242 ML IV SCH (17:45)
[2022-10-21] MEDS: risperiDONE 1 MG TAB PO SCH (21:33)
[2022-10-21] MEDS: ATORVASTATIN 20 MG TAB PO SCH (21:33)
[2022-10-21] MEDS: fentaNYL Drip 2500mCg/250mlNS 250 ML IV SCH (22:15)
[2022-10-22] VITALS (36 sets, daily range): BP systolic 93–123; BP diastolic 50–82; PULSE 74–108; RESP 18–47; TEMP 98–98.4; O2SAT 90–100
[2022-10-22] MEDS: ALBUTEROL SULF 2.5 MG/0.5ML(0.5%) NEB SOLN NEB SCH ×4 (00:04→18:18)
[2022-10-22] MEDS: IPRATROPIUM BROM 0.5 MG/2.5ML INH SOL NEB SCH ×4 (00:04→18:18)
[2022-10-22] MEDS: PIPERACILLIN-TAZOB 3.375GM 100 ML IV SCH ×3 (03:43→22:27)
[2022-10-22 03:52] LABS: Basophils # (auto) 0 10 ^3/uL (0-0.2); Basophils % (auto) 0.5 % (0.0-2.0); Eosinophils # (auto) 0.2 10 ^3/uL (0-0.8); Eosinophils % (auto) 1.6 % (0.0-7.0); Hematocrit 27.2 % (41.0-53.0); Hemoglobin 8.9 g/dL (13.5-17.5); Lymphocytes # (auto) 1.4 10 ^3/uL (0.4-5.4); Lymphocytes % (auto) 14.4 % (10.0-50.0); Mean Corpuscular Hemoglobin 29.6 pg (28.0-32.0); Mean Corpuscular Hgb Conc. 32.8 g/dL (32.0-36.0); Mean Corpuscular Volume 90.1 fL (80.0-100.0); Monocytes # (auto) 0.9 10 ^3/uL (0-1.3); Monocytes % (auto) 9.2 % (0.0-12.0); Neutrophils # (auto) 7.4 10 ^3/uL (1.6-8.6); Neutrophils % (auto) 74.3 % (37.0-80.0); Red Blood Cells 3.02 10^6/uL (4.5-5.90); Red Cell Distribution Width 15.3 % (11.8-14.3)
[2022-10-22 04:08] LABS: Albumin 1.7 g/dL (3.4-5.0); Calcium 8.8 mg/dL (8.5-10.1); Potassium 3.8 mmol/L (3.5-5.1)
[2022-10-22 04:13] LABS: Bilirubin, Total 0.7 mg/dL (0.2-1.0); Total Protein 5.8 g/dL (6.4-8.2)
[2022-10-22] MEDS: VASOPRESSIN 20 UNITS in SODIUM CHL 0.9% 99 ML IV SCH ×2 (07:41→17:38)
[2022-10-22] MEDS: Ensure Enlive Strawberry 8oz Bottle PO SCH ×2 (08:00→17:38)
[2022-10-22] MEDS: Pro-Stat SF 30ml Vanilla PO SCH ×2 (09:52→18:39)
[2022-10-22] MEDS: SODIUM CHLOR 0.9% PF (SALINE LOCK) 10ML VIAL/SYR IV SCH ×2 (13:23→22:27)
[2022-10-22] MEDS: MIDAZOLAM DRIP 50 mg/50mL 50 ML IV SCH (14:45)
[2022-10-22] MEDS: PHENYLEPHRINE INJ 80 MG in SODIUM CHL 0.9% 242 ML IV SCH (17:37)
[2022-10-22] MEDS: NOREPINEPHRINE BITARTRATE 32 MG in SODIUM CHL 0.9% 218 ML IV SCH (17:37)
[2022-10-22] MEDS: fentaNYL Drip 2500mCg/250mlNS 250 ML IV SCH (22:15)
[2022-10-22] MEDS: risperiDONE 1 MG TAB PO SCH (22:28)
[2022-10-22] MEDS: ATORVASTATIN 20 MG TAB PO SCH (22:29)
[2022-10-23] VITALS (32 sets, daily range): BP systolic 91–123; BP diastolic 46–67; PULSE 63–96; RESP 18–40; TEMP 98–99; O2SAT 93–100
[2022-10-23] MEDS: IPRATROPIUM BROM 0.5 MG/2.5ML INH SOL NEB SCH ×5 (00:18→23:58)
[2022-10-23] MEDS: ALBUTEROL SULF 2.5 MG/0.5ML(0.5%) NEB SOLN NEB SCH ×5 (00:18→23:58)
[2022-10-23] MEDS: PIPERACILLIN-TAZOB 3.375GM 100 ML IV SCH ×3 (04:42→23:30)
[2022-10-23] MEDS: VASOPRESSIN 20 UNITS in SODIUM CHL 0.9% 99 ML IV SCH (05:55)
[2022-10-23] MEDS: Ensure Enlive Strawberry 8oz Bottle PO SCH ×2 (08:00→19:05)
[2022-10-23] MEDS: Pro-Stat SF 30ml Vanilla PO SCH ×2 (08:36→19:05)
[2022-10-23] MEDS: SODIUM CHLOR 0.9% PF (SALINE LOCK) 10ML VIAL/SYR IV SCH ×2 (09:30→23:30)
[2022-10-23 09:39] LABS: Basophils # (auto) 0.1 10 ^3/uL (0-0.2); Basophils % (auto) 0.6 % (0.0-2.0); Eosinophils # (auto) 0.2 10 ^3/uL (0-0.8); Hematocrit 30.3 % (41.0-53.0); Lymphocytes # (auto) 1.4 10 ^3/uL (0.4-5.4); Lymphocytes % (auto) 13.2 % (10.0-50.0); Mean Corpuscular Hemoglobin 30.1 pg (28.0-32.0); Mean Corpuscular Hgb Conc. 32.9 g/dL (32.0-36.0); Mean Corpuscular Volume 91.5 fL (80.0-100.0); Monocytes % (auto) 9.2 % (0.0-12.0); Neutrophils # (auto) 7.8 10 ^3/uL (1.6-8.6); Red Blood Cells 3.31 10^6/uL (4.5-5.90); Red Cell Distribution Width 15.4 % (11.8-14.3); White Blood Cell 10.4 10^3/uL (4.4-10.8)
[2022-10-23 09:42] LABS: Potassium 3.9 mmol/L (3.5-5.1)
[2022-10-23 09:51] LABS: Albumin 1.7 g/dL (3.4-5.0); BUN/Creatinine Ratio 20.4 (10.0-20.0); Bilirubin, Total 0.7 mg/dL (0.2-1.0); Calcium 8.4 mg/dL (8.5-10.1); Total Protein 6.3 g/dL (6.4-8.2)
[2022-10-23] MEDS ORDERED: PANTOPRAZOLE 40 MG TAB PO ONE (12:45)
[2022-10-23] MEDS: risperiDONE 1 MG TAB PO SCH (23:51)
[2022-10-23] MEDS: ATORVASTATIN 20 MG TAB PO SCH (23:52)
[2022-10-24] VITALS (25 sets, daily range): BP systolic 90–116; BP diastolic 40–72; PULSE 67–98; RESP 18–41; TEMP 97.9–98.8; O2SAT 8–100
[2022-10-24] MEDS: PIPERACILLIN-TAZOB 3.375GM 100 ML IV SCH ×3 (04:40→20:54)
[2022-10-24 05:13] LABS: Albumin 1.6 g/dL (3.4-5.0); Calcium 8.7 mg/dL (8.5-10.1); Potassium 3.9 mmol/L (3.5-5.1)
[2022-10-24 05:16] LABS: BUN/Creatinine Ratio 24.1 (10.0-20.0); Bilirubin, Total 0.4 mg/dL (0.2-1.0); Total Protein 6.4 g/dL (6.4-8.2)
[2022-10-24 05:33] LABS: Basophils # (auto) 0.1 10 ^3/uL (0-0.2); Basophils % (auto) 0.8 % (0.0-2.0); Eosinophils # (auto) 0.2 10 ^3/uL (0-0.8); Eosinophils % (auto) 2.4 % (0.0-7.0); Hematocrit 28.4 % (41.0-53.0); Hemoglobin 9.5 g/dL (13.5-17.5); Lymphocytes # (auto) 1.7 10 ^3/uL (0.4-5.4); Lymphocytes % (auto) 15.9 % (10.0-50.0); Mean Corpuscular Hemoglobin 30.6 pg (28.0-32.0); Mean Corpuscular Hgb Conc. 33.6 g/dL (32.0-36.0); Mean Corpuscular Volume 91.2 fL (80.0-100.0); Monocytes % (auto) 9.3 % (0.0-12.0); Neutrophils # (auto) 7.5 10 ^3/uL (1.6-8.6); Neutrophils % (auto) 71.6 % (37.0-80.0); Red Blood Cells 3.12 10^6/uL (4.5-5.90); Red Cell Distribution Width 15.4 % (11.8-14.3); White Blood Cell 10.5 10^3/uL (4.4-10.8)
[2022-10-24] MEDS: IPRATROPIUM BROM 0.5 MG/2.5ML INH SOL NEB SCH ×3 (06:11→18:44)
[2022-10-24] MEDS: ALBUTEROL SULF 2.5 MG/0.5ML(0.5%) NEB SOLN NEB SCH ×3 (06:11→18:44)
[2022-10-24] MEDS: PANTOPRAZOLE 40 MG TAB PO SCH (08:21)
[2022-10-24] MEDS: SODIUM CHLOR 0.9% PF (SALINE LOCK) 10ML VIAL/SYR IV SCH ×2 (08:22→20:53)
[2022-10-24] MEDS: Pro-Stat SF 30ml Vanilla PO SCH ×2 (08:22→17:56)
[2022-10-24] MEDS: Ensure Enlive Strawberry 8oz Bottle PO SCH ×2 (08:22→17:56)
[2022-10-24] MEDS: ATORVASTATIN 20 MG TAB PO SCH (20:53)
[2022-10-24] MEDS: risperiDONE 1 MG TAB PO SCH (20:53)
[2022-10-25] VITALS (15 sets, daily range): BP systolic 75–176; BP diastolic 34–84; PULSE 68–86; RESP 17–22; TEMP 98–98.3; O2SAT 95–100
[2022-10-25] MEDS: ALBUTEROL SULF 2.5 MG/0.5ML(0.5%) NEB SOLN NEB SCH ×4 (00:34→18:15)
[2022-10-25] MEDS: IPRATROPIUM BROM 0.5 MG/2.5ML INH SOL NEB SCH ×4 (00:34→18:15)
[2022-10-25] MEDS: PIPERACILLIN-TAZOB 3.375GM 100 ML IV SCH ×3 (04:55→21:46)
[2022-10-25] MEDS: Pro-Stat SF 30ml Vanilla PO SCH ×2 (08:08→17:40)
[2022-10-25] MEDS: Ensure Enlive Strawberry 8oz Bottle PO SCH ×2 (08:08→17:40)
[2022-10-25] MEDS: SODIUM CHLOR 0.9% PF (SALINE LOCK) 10ML VIAL/SYR IV SCH ×2 (10:06→21:49)
[2022-10-25] MEDS: PANTOPRAZOLE 40 MG TAB PO SCH (10:06)
[2022-10-25] MEDS ORDERED: LOSARTAN POTASSIUM 50 MG TAB PO ONE (12:15)
[2022-10-25] MEDS ORDERED: cloNIDine HCL 0.1 MG TAB PO ONE (12:15)
[2022-10-25] MEDS: ATORVASTATIN 20 MG TAB PO SCH (21:46)
[2022-10-25] MEDS: risperiDONE 1 MG TAB PO SCH (21:49)
[2022-10-26] VITALS (16 sets, daily range): BP systolic 98–176; BP diastolic 43–74; PULSE 60–105; RESP 16–23; TEMP 36.7; O2SAT 90–99
[2022-10-26] MEDS: IPRATROPIUM BROM 0.5 MG/2.5ML INH SOL NEB SCH ×4 (00:01→18:08)
[2022-10-26] MEDS: ALBUTEROL SULF 2.5 MG/0.5ML(0.5%) NEB SOLN NEB SCH ×4 (00:01→18:08)
[2022-10-26] MEDS ORDERED: SOD CHL 0.45% 1,000 ML IV ONE (01:30)
[2022-10-26] MEDS: PIPERACILLIN-TAZOB 3.375GM 100 ML IV SCH ×2 (05:41→11:44)
[2022-10-26] MEDS: Pro-Stat SF 30ml Vanilla PO SCH ×2 (10:33→17:47)
[2022-10-26] MEDS: Ensure Enlive Strawberry 8oz Bottle PO SCH ×2 (10:33→17:47)
[2022-10-26] MEDS: SODIUM CHLOR 0.9% PF (SALINE LOCK) 10ML VIAL/SYR IV SCH ×2 (10:34→22:23)
[2022-10-26] MEDS: PANTOPRAZOLE 40 MG TAB PO SCH (10:37)
[2022-10-26] MEDS: LOSARTAN POTASSIUM 50 MG TAB PO SCH (10:37)
[2022-10-26] MEDS: ACETAMINOPHEN 325 MG TAB PO PRN (17:46)
[2022-10-26] MEDS: risperiDONE 1 MG TAB PO SCH (22:00)
[2022-10-26] MEDS: ATORVASTATIN 20 MG TAB PO SCH (22:25)
[2022-10-27] VITALS (14 sets, daily range): BP systolic 94–127; BP diastolic 36–62; PULSE 67–104; RESP 14–22; TEMP 37.1; O2SAT 91–100
[2022-10-27] MEDS: IPRATROPIUM BROM 0.5 MG/2.5ML INH SOL NEB SCH ×4 (00:05→19:09)
[2022-10-27] MEDS: ALBUTEROL SULF 2.5 MG/0.5ML(0.5%) NEB SOLN NEB SCH ×4 (00:05→19:09)
[2022-10-27 06:30] LABS: Basophils # (auto) 0.1 10 ^3/uL (0-0.2); Basophils % (auto) 1.2 % (0.0-2.0); Eosinophils # (auto) 0.3 10 ^3/uL (0-0.8); Eosinophils % (auto) 3.2 % (0.0-7.0); Hematocrit 30.8 % (41.0-53.0); Hemoglobin 10.2 g/dL (13.5-17.5); Lymphocytes # (auto) 1.3 10 ^3/uL (0.4-5.4); Lymphocytes % (auto) 14.8 % (10.0-50.0); Mean Corpuscular Hemoglobin 30.5 pg (28.0-32.0); Mean Corpuscular Volume 92.3 fL (80.0-100.0); Monocytes # (auto) 1.1 10 ^3/uL (0-1.3); Monocytes % (auto) 12.8 % (0.0-12.0); Nucleated Red Blood Cells % 0.1 %; Red Blood Cells 3.34 10^6/uL (4.5-5.90); White Blood Cell 8.8 10^3/uL (4.4-10.8)
[2022-10-27 06:46] LABS: Calcium 9.3 mg/dL (8.5-10.1); Potassium 4.6 mmol/L (3.5-5.1)
[2022-10-27 06:49] LABS: BUN/Creatinine Ratio 47.4 (10.0-20.0)
[2022-10-27] MEDS: PANTOPRAZOLE 40 MG TAB PO SCH (08:29)
[2022-10-27] MEDS: SODIUM CHLOR 0.9% PF (SALINE LOCK) 10ML VIAL/SYR IV SCH ×2 (08:30→22:40)
[2022-10-27] MEDS: LOSARTAN POTASSIUM 50 MG TAB PO SCH (08:30)
[2022-10-27] MEDS: Ensure Enlive Strawberry 8oz Bottle PO SCH ×2 (08:30→17:20)
[2022-10-27] MEDS: Pro-Stat SF 30ml Vanilla PO SCH ×2 (08:31→17:20)
[2022-10-27] MEDS: ATORVASTATIN 20 MG TAB PO SCH (22:31)
[2022-10-27] MEDS: risperiDONE 1 MG TAB PO SCH (22:31)
[2022-10-28] VITALS (14 sets, daily range): BP systolic 95–126; BP diastolic 46–64; PULSE 56–89; RESP 12–22; TEMP 97.4–98.9; O2SAT 94–100
[2022-10-28] MEDS: ALBUTEROL SULF 2.5 MG/0.5ML(0.5%) NEB SOLN NEB SCH ×4 (00:44→19:10)
[2022-10-28] MEDS: IPRATROPIUM BROM 0.5 MG/2.5ML INH SOL NEB SCH ×4 (00:44→19:10)
[2022-10-28] MEDS: LOSARTAN POTASSIUM 50 MG TAB PO SCH (08:50)
[2022-10-28] MEDS: PANTOPRAZOLE 40 MG TAB PO SCH (08:50)
[2022-10-28] MEDS: Ensure Enlive Strawberry 8oz Bottle PO SCH ×2 (08:51→18:36)
[2022-10-28] MEDS: Pro-Stat SF 30ml Vanilla PO SCH ×2 (08:51→18:36)
[2022-10-28] MEDS: SODIUM CHLOR 0.9% PF (SALINE LOCK) 10ML VIAL/SYR IV SCH ×2 (10:52→21:33)
[2022-10-28] MEDS: risperiDONE 1 MG TAB PO SCH (21:33)
[2022-10-28] MEDS: ATORVASTATIN 20 MG TAB PO SCH (21:33)
[2022-10-29] VITALS (17 sets, daily range): BP systolic 87–146; BP diastolic 39–78; PULSE 49–92; RESP 16–32; TEMP 97.9–99; O2SAT 96–100
[2022-10-29] MEDS: IPRATROPIUM BROM 0.5 MG/2.5ML INH SOL NEB SCH ×4 (01:07→19:11)
[2022-10-29] MEDS: ALBUTEROL SULF 2.5 MG/0.5ML(0.5%) NEB SOLN NEB SCH ×4 (01:08→19:11)
[2022-10-29] MEDS: Ensure Enlive Strawberry 8oz Bottle PO SCH ×2 (10:06→17:46)
[2022-10-29] MEDS: LOSARTAN POTASSIUM 50 MG TAB PO SCH (10:07)
[2022-10-29] MEDS: Pro-Stat SF 30ml Vanilla PO SCH ×2 (10:07→17:47)
[2022-10-29] MEDS: PANTOPRAZOLE 40 MG TAB PO SCH (10:09)
[2022-10-29] MEDS: SODIUM CHLOR 0.9% PF (SALINE LOCK) 10ML VIAL/SYR IV SCH ×2 (10:11→21:04)
[2022-10-29] MEDS: risperiDONE 1 MG TAB PO SCH (21:04)
[2022-10-29] MEDS: ATORVASTATIN 20 MG TAB PO SCH (21:04)
[2022-10-29] MEDS ORDERED: ALBUMIN 5% 250 ML IV ONE (22:45)
[2022-10-30] VITALS (19 sets, daily range): BP systolic 100–115; BP diastolic 34–61; PULSE 51–96; RESP 16–28; TEMP 97.9–99; O2SAT 95–100
[2022-10-30] MEDS: IPRATROPIUM BROM 0.5 MG/2.5ML INH SOL NEB SCH ×4 (00:39→18:45)
[2022-10-30] MEDS: ALBUTEROL SULF 2.5 MG/0.5ML(0.5%) NEB SOLN NEB SCH ×4 (00:39→18:45)
[2022-10-30 06:01] LABS: Basophils # (auto) 0.1 10 ^3/uL (0-0.2); Basophils % (auto) 0.8 % (0.0-2.0); Eosinophils # (auto) 0.1 10 ^3/uL (0-0.8); Eosinophils % (auto) 1.9 % (0.0-7.0); Hematocrit 25.8 % (41.0-53.0); Hemoglobin 8.7 g/dL (13.5-17.5); Lymphocytes # (auto) 1.4 10 ^3/uL (0.4-5.4); Lymphocytes % (auto) 21.3 % (10.0-50.0); Mean Corpuscular Hemoglobin 30.3 pg (28.0-32.0); Mean Corpuscular Hgb Conc. 33.8 g/dL (32.0-36.0); Mean Corpuscular Volume 89.7 fL (80.0-100.0); Monocytes # (auto) 0.9 10 ^3/uL (0-1.3); Monocytes % (auto) 13.2 % (0.0-12.0); Neutrophils # (auto) 4.2 10 ^3/uL (1.6-8.6); Neutrophils % (auto) 62.8 % (37.0-80.0); Red Blood Cells 2.88 10^6/uL (4.5-5.90); Red Cell Distribution Width 15.1 % (11.8-14.3); White Blood Cell 6.8 10^3/uL (4.4-10.8)
[2022-10-30 06:25] LABS: BUN/Creatinine Ratio 41.7 (10.0-20.0); Potassium 3.8 mmol/L (3.5-5.1)
[2022-10-30] MEDS: Ensure Enlive Strawberry 8oz Bottle PO SCH ×2 (08:00→18:35)
[2022-10-30] MEDS: Pro-Stat SF 30ml Vanilla PO SCH ×2 (08:00→18:35)
[2022-10-30] MEDS: PANTOPRAZOLE 40 MG TAB PO SCH (09:29)
[2022-10-30] MEDS: LOSARTAN POTASSIUM 50 MG TAB PO SCH (09:32)
[2022-10-30] MEDS: SODIUM CHLOR 0.9% PF (SALINE LOCK) 10ML VIAL/SYR IV SCH ×2 (10:00→21:00)
[2022-10-30] MEDS: ATORVASTATIN 20 MG TAB PO SCH (21:00)
[2022-10-30] MEDS: risperiDONE 1 MG TAB PO SCH (21:00)
[2022-10-31] VITALS (14 sets, daily range): BP systolic 100–131; BP diastolic 45–64; PULSE 50–94; RESP 16–20; TEMP 97.9–99.8; O2SAT 95–100
[2022-10-31] MEDS: ALBUTEROL SULF 2.5 MG/0.5ML(0.5%) NEB SOLN NEB SCH ×4 (00:32→18:54)
[2022-10-31] MEDS: IPRATROPIUM BROM 0.5 MG/2.5ML INH SOL NEB SCH ×4 (00:32→18:54)
[2022-10-31 06:58] LABS: Basophils # (auto) 0.1 10 ^3/uL (0-0.2); Eosinophils # (auto) 0.2 10 ^3/uL (0-0.8); Eosinophils % (auto) 2.1 % (0.0-7.0); Hematocrit 26.8 % (41.0-53.0); Hemoglobin 8.9 g/dL (13.5-17.5); Lymphocytes # (auto) 1.6 10 ^3/uL (0.4-5.4); Lymphocytes % (auto) 19.3 % (10.0-50.0); Mean Corpuscular Hemoglobin 30.2 pg (28.0-32.0); Mean Corpuscular Hgb Conc. 33.2 g/dL (32.0-36.0); Mean Corpuscular Volume 90.9 fL (80.0-100.0); Monocytes # (auto) 0.9 10 ^3/uL (0-1.3); Monocytes % (auto) 11.4 % (0.0-12.0); Neutrophils # (auto) 5.3 10 ^3/uL (1.6-8.6); Neutrophils % (auto) 66.2 % (37.0-80.0); Red Blood Cells 2.95 10^6/uL (4.5-5.90); Red Cell Distribution Width 14.9 % (11.8-14.3); White Blood Cell 8.1 10^3/uL (4.4-10.8)
[2022-10-31] MEDS: PANTOPRAZOLE 40 MG TAB PO SCH (09:19)
[2022-10-31] MEDS: Pro-Stat SF 30ml Vanilla PO SCH ×2 (09:20→18:19)
[2022-10-31] MEDS: Ensure Enlive Strawberry 8oz Bottle PO SCH ×2 (09:20→18:19)
[2022-10-31] MEDS: LOSARTAN POTASSIUM 50 MG TAB PO SCH (09:20)
[2022-10-31] MEDS: SODIUM CHLOR 0.9% PF (SALINE LOCK) 10ML VIAL/SYR IV SCH ×2 (09:21→22:02)
[2022-10-31] MEDS: risperiDONE 1 MG TAB PO SCH (22:02)
[2022-10-31] MEDS: ATORVASTATIN 20 MG TAB PO SCH (22:02)
[2022-11-01] VITALS (11 sets, daily range): BP systolic 96–131; BP diastolic 42–55; PULSE 58–95; RESP 15–26; TEMP 97.5–98.2; O2SAT 95–100
[2022-11-01] MEDS: ALBUTEROL SULF 2.5 MG/0.5ML(0.5%) NEB SOLN NEB SCH ×3 (00:59→12:37)
[2022-11-01] MEDS: IPRATROPIUM BROM 0.5 MG/2.5ML INH SOL NEB SCH ×3 (00:59→12:37)
[2022-11-01] MEDS: Ensure Enlive Strawberry 8oz Bottle PO SCH (08:00)
[2022-11-01] MEDS: Pro-Stat SF 30ml Vanilla PO SCH (08:00)
[2022-11-01] MEDS: LOSARTAN POTASSIUM 50 MG TAB PO SCH (10:00)
[2022-11-01] MEDS: SODIUM CHLOR 0.9% PF (SALINE LOCK) 10ML VIAL/SYR IV SCH (10:27)
[2022-11-01] MEDS: PANTOPRAZOLE 40 MG TAB PO SCH (10:27)
== END 2022-11-01 16:32 | DRG 853 ==
LOC: EDBD 12:12 → ER 12:12 → TELE 21:14 → ICU CENTRL 10-09 02:50 → TELE 10-14 17:02 → DOU IN ICU 10-15 05:49 → ICU WEST 10-18 13:13 → DOU IN ICU 10-22 22:40 → TELE-WESTW 10-24 14:22 → WEST WING 10-24 14:24
PROVIDERS: ADMIT Internal Medicine; ATTEND Internal Medicine
PROC: 5A09357 Assistance with Respiratory Ventilation, Less than 24 Consecutive Hours, Continuous Positive Airway Pressure (ICD-10-PCS; 2022-10-08)
PROC: 0W9B30Z Drainage of Left Pleural Cavity with Drainage Device, Percutaneous Approach (ICD-10-PCS; 2022-10-09)
PROC: 5A09357 Assistance with Respiratory Ventilation, Less than 24 Consecutive Hours, Continuous Positive Airway Pressure (ICD-10-PCS; 2022-10-09)
PROC: 02HV33Z Insertion of Infusion Device into Superior Vena Cava, Percutaneous Approach (ICD-10-PCS; 2022-10-11)
PROC: B548ZZA Ultrasonography of Superior Vena Cava, Guidance (ICD-10-PCS; 2022-10-11)
PROC: 0W993ZZ Drainage of Right Pleural Cavity, Percutaneous Approach (ICD-10-PCS; 2022-10-15)
PROC: 0BNL0ZZ Release Left Lung, Open Approach (ICD-10-PCS; 2022-10-18)
PROC: 5A1945Z Respiratory Ventilation, 24-96 Consecutive Hours (ICD-10-PCS; 2022-10-18)
PROC: 0BH17EZ Insertion of Endotracheal Airway into Trachea, Via Natural or Artificial Opening (ICD-10-PCS; 2022-10-18)
PROC: 0W9B00Z Drainage of Left Pleural Cavity with Drainage Device, Open Approach (ICD-10-PCS; principal; 2022-10-18 07:52)
PROC: 30233N1 Transfusion of Nonautologous Red Blood Cells into Peripheral Vein, Percutaneous Approach (ICD-10-PCS; 2022-10-19)
DX: A41.9 Sepsis, unspecified organism (principal); E43 Unspecified severe protein-calorie malnutrition; J96.20 Acute and chronic respiratory failure, unspecified whether with hypoxia or hypercapnia; R65.21 Severe sepsis with septic shock; G93.41 Metabolic encephalopathy; J69.0 Pneumonitis due to inhalation of food and vomit; J86.9 Pyothorax without fistula; J44.1 Chronic obstructive pulmonary disease with (acute) exacerbation; J90 Pleural effusion, not elsewhere classified; N40.0 Benign prostatic hyperplasia without lower urinary tract symptoms; F17.210 Nicotine dependence, cigarettes, uncomplicated; R79.89 Other specified abnormal findings of blood chemistry; R19.7 Diarrhea, unspecified; H91.90 Unspecified hearing loss, unspecified ear; I10 Essential (primary) hypertension; Z20.822 Contact with and (suspected) exposure to COVID-19; D64.9 Anemia, unspecified; E78.5 Hyperlipidemia, unspecified; F03.90 Unspecified dementia, unspecified severity, without behavioral disturbance, psychotic disturbance, mood disturbance, and anxiety; I25.2 Old myocardial infarction; Z79.899 Other long term (current) drug therapy; Z86.73 Personal history of transient ischemic attack (TIA), and cerebral infarction without residual deficits
CPT/HCPCS: 10005; 36415; 36569; 36600; 70450; 71045; 71250; 74176; 76604; 77012; 80048; 80053; 80307; 81001; 82805; 82962; 83036; 83605; 83735; 83880; 83986; 84100; 84443; 84484; 85007; 85014; 85018; 85025; 85027; 85610; 85730; 86850; 86900; 86901; 86920; 87040; 87070; 87075; 87081; 87205; 87426; 87804; 89051; 92610; 93005; 93306; 94002; 94003; 94640; 94660; 96365; 96367; 96375; 97110; 97116; 97163; 97530; A4223; G0378; J0330; J0696; J1100; J1956; J2001; J2250; J2543; J2704; J3490; P9047

== ENCOUNTER 2022-11-07 16:15 | Inpatient (IN) | payer OTHER, MEDICAID ==
[~2022-11-07] VITALS: Ht 167.6 cm; Wt 47.9 kg
[~2022-11-07 16:15] MED LIST changes: +ALLO100T PO; -CLOP75TA70 PO; +PANT40TA2 PO
[2022-11-07 18:13] LABS: Basophils # (auto) 0.1 10 ^3/uL (0-0.2); Basophils % (auto) 0.8 % (0.0-2.0); Eosinophils # (auto) 0.1 10 ^3/uL (0-0.8); Eosinophils % (auto) 1.3 % (0.0-7.0); Hematocrit 32.2 % (41.0-53.0); Hemoglobin 10.6 g/dL (13.5-17.5); Lymphocytes # (auto) 1.8 10 ^3/uL (0.4-5.4); Lymphocytes % (auto) 18.6 % (10.0-50.0); Mean Corpuscular Hemoglobin 29.7 pg (28.0-32.0); Mean Corpuscular Hgb Conc. 32.9 g/dL (32.0-36.0); Mean Corpuscular Volume 90.2 fL (80.0-100.0); Monocytes # (auto) 1.1 10 ^3/uL (0-1.3); Monocytes % (auto) 10.8 % (0.0-12.0); Neutrophils # (auto) 6.7 10 ^3/uL (1.6-8.6); Neutrophils % (auto) 68.5 % (37.0-80.0); Red Blood Cells 3.57 10^6/uL (4.5-5.90); Red Cell Distribution Width 15.5 % (11.8-14.3); White Blood Cell 9.8 10^3/uL (4.4-10.8)
[2022-11-07 18:32] LABS: Albumin 2.5 g/dL (3.4-5.0); Calcium 9.4 mg/dL (8.5-10.1); Potassium 3.8 mmol/L (3.5-5.1)
[2022-11-07 18:44] LABS: BUN/Creatinine Ratio 25.7 (10.0-20.0); Bilirubin, Total 0.4 mg/dL (0.2-1.0); Total Protein 7.8 g/dL (6.4-8.2)
[2022-11-07] MEDS ORDERED: LIDOCAINE 1% HCL (LOCAL ANESTH.) INJ 20ML MDV ID ONE (20:15)
[2022-11-07] MEDS ORDERED: SODIUM CHLORIDE 0.9% 1,000 ML IV ONE (21:15)
[2022-11-07] MEDS ORDERED: IPRATROPIUM BROM 0.5 MG/2.5ML INH SOL NEB PRN (21:15)
[2022-11-07] MEDS ORDERED: DOCUSATE SOD 100 MG CAP PO PRN (21:15)
[2022-11-07] MEDS ORDERED: ALBUTEROL SULF 2.5 MG/0.5ML(0.5%) NEB SOLN NEB PRN (21:15)
[2022-11-07] MEDS ORDERED: HYDROcodone-ACET 5/325MG TAB PO PRN (21:15)
[2022-11-07] MEDS ORDERED: ACETAMINOPHEN 325 MG TAB PO PRN (21:15)
[2022-11-07] MEDS ORDERED: ONDANSETRON HCL 4 MG/2 ML VIAL IV PRN (21:15)
[2022-11-07] MEDS ORDERED: MORPHINE SULFATE INJ 2 MG/ml SYRG IV PRN (21:15)
[2022-11-07] MEDS ORDERED: NITROGLYCERIN 0.4 MG SL TAB SL PRN (21:15)
[2022-11-07 21:23] VITALS: BP 135/75; PULSE 76; RESP 19; TEMP 98.5; O2SAT 96
[2022-11-07] MEDS ORDERED: ATOR40TA52 PO (21:24)
[2022-11-07] MEDS ORDERED: HYDROcodone-ACET 7.5/325MG TAB PO PRN (22:45)
[2022-11-07] MEDS: ATORVASTATIN 20 MG TAB PO SCH (23:05)
[2022-11-07 23:49] LABS: INR 1.21 (0.9-1.15); Partial Thromboplastin Time 22.5 SEC (24.5-34.5); Prothrombin Time 12.5 sec (9.3-11.8)
[2022-11-08 00:19] VITALS: PULSE 88; RESP 38; O2SAT 96
[2022-11-08 06:26] LABS: Basophils # (auto) 0.1 10 ^3/uL (0-0.2); Basophils % (auto) 1.4 % (0.0-2.0); Eosinophils # (auto) 0.2 10 ^3/uL (0-0.8); Eosinophils % (auto) 3.1 % (0.0-7.0); Hematocrit 31.5 % (41.0-53.0); Hemoglobin 10.3 g/dL (13.5-17.5); Lymphocytes # (auto) 1.6 10 ^3/uL (0.4-5.4); Lymphocytes % (auto) 27.7 % (10.0-50.0); Mean Corpuscular Hemoglobin 29.6 pg (28.0-32.0); Mean Corpuscular Hgb Conc. 32.8 g/dL (32.0-36.0); Mean Corpuscular Volume 90.3 fL (80.0-100.0); Monocytes # (auto) 0.6 10 ^3/uL (0-1.3); Monocytes % (auto) 10.7 % (0.0-12.0); Neutrophils # (auto) 3.2 10 ^3/uL (1.6-8.6); Neutrophils % (auto) 57.1 % (37.0-80.0); Nucleated Red Blood Cells % 0.1 %; Red Blood Cells 3.49 10^6/uL (4.5-5.90); Red Cell Distribution Width 15.5 % (11.8-14.3); White Blood Cell 5.6 10^3/uL (4.4-10.8)
[2022-11-08 06:30] LABS: Potassium 3.6 mmol/L (3.5-5.1)
[2022-11-08 06:43] LABS: Albumin 2.2 g/dL (3.4-5.0); BUN/Creatinine Ratio 20.3 (10.0-20.0); Bilirubin, Total 0.3 mg/dL (0.2-1.0); Calcium 8.8 mg/dL (8.5-10.1); Total Protein 7.4 g/dL (6.4-8.2)
[2022-11-08 08:00] VITALS: PULSE 57; RESP 30; O2SAT 96
[2022-11-08 10:19] VITALS: PULSE 74; RESP 20; O2SAT 100
[2022-11-08 10:25] VITALS: PULSE 65; RESP 20; O2SAT 100
[2022-11-08] MEDS: LOSARTAN POTASSIUM 25 MG TAB PO SCH (10:57)
[2022-11-08] MEDS: PANTOPRAZOLE 40 MG TAB PO SCH (10:57)
[2022-11-08 19:35] VITALS: PULSE 57; RESP 30; O2SAT 96
[2022-11-08 23:30] VITALS: BP_SYST 136; BP_SYST 137; BP_DIAS 58; BP_DIAS 84; PULSE 67; PULSE 80; RESP 14; TEMP 98; TEMP 98.2; O2SAT 97; O2SAT 98
[2022-11-08] MEDS: ATORVASTATIN 20 MG TAB PO SCH (23:35)
[2022-11-09] VITALS (10 sets, daily range): BP systolic 104–162; BP diastolic 59–99; PULSE 54–73; RESP 14–22; TEMP 97.6–98.2; O2SAT 91–100
[2022-11-09] MEDS: PANTOPRAZOLE 40 MG TAB PO SCH (09:31)
[2022-11-09] MEDS: LOSARTAN POTASSIUM 25 MG TAB PO SCH (09:32)
[2022-11-09] MEDS ORDERED: hydrALAZINE HCL 20 MG/ML VL IV PRN (15:00)
[2022-11-09] MEDS: ATORVASTATIN 20 MG TAB PO SCH (21:18)
[2022-11-10] VITALS (8 sets, daily range): BP systolic 121–141; BP diastolic 60–74; PULSE 39–72; RESP 19–20; TEMP 98–98.7; O2SAT 97–99
[2022-11-10] MEDS: PANTOPRAZOLE 40 MG TAB PO SCH (09:09)
[2022-11-10] MEDS: LOSARTAN POTASSIUM 25 MG TAB PO SCH (09:09)
[2022-11-10] MEDS: ATORVASTATIN 20 MG TAB PO SCH (21:07)
[2022-11-11 03:26] VITALS: BP 141/66; PULSE 72; RESP 19; O2SAT 99
[2022-11-11 04:45] VITALS: BP 135/49; PULSE 58; RESP 18; TEMP 97.8; O2SAT 96
[2022-11-11 08:00] VITALS: BP 140/67; PULSE 49; PULSE 67; RESP 20; TEMP 97.9; O2SAT 92
[2022-11-11] MEDS: PANTOPRAZOLE 40 MG TAB PO SCH (09:00)
[2022-11-11] MEDS: LOSARTAN POTASSIUM 25 MG TAB PO SCH (09:00)
[2022-11-11 10:28] VITALS: BP 140/67; TEMP 36.6
== END 2022-11-11 11:31 | disposition home or self-care (01) | DRG 604 ==
LOC: ER 16:15 → EDBD 16:15 → TELE 21:19 → TELE-WESTW 11-08 23:00
PROVIDERS: ADMIT Family Medicine; ATTEND Family Medicine
PROC: 0HQ0XZZ Repair Scalp Skin, External Approach (ICD-10-PCS; principal; 2022-11-07)
DX: S01.81XA Laceration without foreign body of other part of head, initial encounter (principal); E43 Unspecified severe protein-calorie malnutrition; J96.01 Acute respiratory failure with hypoxia; J90 Pleural effusion, not elsewhere classified; R55 Syncope and collapse; I10 Essential (primary) hypertension; J44.9 Chronic obstructive pulmonary disease, unspecified; S13.4XXA Sprain of ligaments of cervical spine, initial encounter; F20.9 Schizophrenia, unspecified; S13.9XXA Sprain of joints and ligaments of unspecified parts of neck, initial encounter; F03.90 Unspecified dementia, unspecified severity, without behavioral disturbance, psychotic disturbance, mood disturbance, and anxiety; D63.8 Anemia in other chronic diseases classified elsewhere; K80.20 Calculus of gallbladder without cholecystitis without obstruction; I49.3 Ventricular premature depolarization; F17.200 Nicotine dependence, unspecified, uncomplicated; E78.5 Hyperlipidemia, unspecified; K21.9 Gastro-esophageal reflux disease without esophagitis; R53.81 Other malaise; S06.0X0A Concussion without loss of consciousness, initial encounter; I49.8 Other specified cardiac arrhythmias; Z87.01 Personal history of pneumonia (recurrent); Z79.899 Other long term (current) drug therapy; Z59.00 Homelessness unspecified; Z86.73 Personal history of transient ischemic attack (TIA), and cerebral infarction without residual deficits; W01.0XXA Fall on same level from slipping, tripping and stumbling without subsequent striking against object, initial encounter; Y93.89 Activity, other specified; Y92.89 Other specified places as the place of occurrence of the external cause; Y99.8 Other external cause status
CPT/HCPCS: 12011; 36415; 70450; 71250; 72125; 74176; 76604; 80053; 84484; 85025; 85610; 85730; 87081; 93005; 94640; 96360; 97110; 97116; 97163; 97530; G0378; J2001

== ENCOUNTER 2022-11-20 11:32 | Inpatient (IN) | payer OTHER, MEDICAID ==
[~2022-11-20] VITALS: Ht 172.7 cm; Wt 52.8 kg
[~2022-11-20 11:32] MED LIST changes: +ATOR40TA52 PO
[2022-11-20 13:30] LABS: Basophils # (auto) 0.1 10 ^3/uL (0-0.2); Basophils % (auto) 0.6 % (0.0-2.0); Eosinophils # (auto) 0 10 ^3/uL (0-0.8); Eosinophils % (auto) 0.4 % (0.0-7.0); Hematocrit 36.6 % (41.0-53.0); Hemoglobin 11.5 g/dL (13.5-17.5); Lymphocytes # (auto) 0.7 10 ^3/uL (0.4-5.4); Lymphocytes % (auto) 7.2 % (10.0-50.0); Mean Corpuscular Hemoglobin 28.9 pg (28.0-32.0); Mean Corpuscular Hgb Conc. 31.4 g/dL (32.0-36.0); Mean Corpuscular Volume 91.9 fL (80.0-100.0); Monocytes % (auto) 9.6 % (0.0-12.0); Neutrophils # (auto) 8.5 10 ^3/uL (1.6-8.6); Neutrophils % (auto) 82.2 % (37.0-80.0); Nucleated Red Blood Cells % 0.2 %; Red Blood Cells 3.99 10^6/uL (4.5-5.90); Red Cell Distribution Width 15.9 % (11.8-14.3); White Blood Cell 10.3 10^3/uL (4.4-10.8)
[2022-11-20] MEDS ORDERED: IPRATROPIUM BROM 0.5 MG/2.5ML INH SOL NEB ONE (15:00)
[2022-11-20] MEDS ORDERED: FUROSEMIDE 40 MG/4 ML VIAL IV ONE (15:00)
[2022-11-20] MEDS ORDERED: ALBUTEROL SULF 2.5 MG/0.5ML(0.5%) NEB SOLN NEB ONE (15:00)
[2022-11-20] MEDS ORDERED: methylPREDNISolone SOD SUCC 40 MG/ML VL IV ONE (15:00)
[2022-11-20 16:26] VITALS: PULSE 84; RESP 20; O2SAT 93
[2022-11-20 17:00] LABS: Chloride 102 mmol/L (98-107); Sodium 138 mmol/L (136-145)
[2022-11-20 17:03] LABS: Anion Gap 6.2 (5-15); Carbon Dioxide 29.8 mmol/L (20-30); Potassium 4.4 mmol/L (3.5-5.1)
[2022-11-20 17:04] LABS: Calcium 9.8 mg/dL (8.5-10.1)
[2022-11-20 17:09] LABS: Alkaline Phosphatase 122 U/L (46-116); Glucose 106 mg/dL (74-106)
[2022-11-20 17:11] LABS: Albumin 3.7 g/dL (3.2-4.8); Aspartate Aminotransferase 17 U/L (13-40); Bilirubin, Total 0.4 mg/dL (0.2-1.0); Total Protein 8.1 g/dL (5.7-8.2)
[2022-11-20 17:14] LABS: Alanine Aminotransferase 11 U/L (7-40); BUN/Creatinine Ratio 26.8 (10.0-20.0); Blood Urea Nitrogen 15 mg/dL (9-23)
[2022-11-20] MEDS ORDERED: ALBUTEROL SULF 2.5 MG/0.5ML(0.5%) NEB SOLN NEB PRN (18:45)
[2022-11-20] MEDS ORDERED: MORPHINE SULFATE INJ 2 MG/ml SYRG IV PRN (18:45)
[2022-11-20] MEDS ORDERED: NITROGLYCERIN 0.4 MG SL TAB SL PRN (18:45)
[2022-11-20] MEDS ORDERED: ACETAMINOPHEN 325 MG TAB PO PRN (18:45)
[2022-11-20] MEDS ORDERED: AZITHROMYCIN 500MG/ 250ML 250 ML IV ONE (19:00)
[2022-11-20] MEDS ORDERED: cefTRIAXone 1GM/50ML D5W 50 ML IV ONE (19:00)
[2022-11-20] MEDS: ALBUTEROL SULF 2.5 MG/0.5ML(0.5%) NEB SOLN NEB SCH (22:16)
[2022-11-20 22:17] VITALS: PULSE 69; RESP 16; O2SAT 96
[2022-11-20] MEDS: IPRATROPIUM BROM 0.5 MG/2.5ML INH SOL NEB SCH (22:17)
[2022-11-20] MEDS: methylPREDNISolone SOD SUCC 40 MG/ML VL IV SCH (22:21)
[2022-11-20] MEDS: ALLOPURINOL 100 MG TAB PO SCH (22:23)
[2022-11-20 22:27] VITALS: PULSE 70; RESP 18; O2SAT 100
[2022-11-20 22:48] VITALS: BP 98/42; PULSE 70; RESP 18; TEMP 98.9; O2SAT 96
[2022-11-21] VITALS (15 sets, daily range): BP systolic 92; BP diastolic 40; PULSE 48–72; RESP 16–32; TEMP 98; O2SAT 94–100
[2022-11-21] MEDS ORDERED: ALBUMIN 5% 250 ML IV ONE (00:15)
[2022-11-21] MEDS: IPRATROPIUM BROM 0.5 MG/2.5ML INH SOL NEB SCH ×6 (02:00→22:35)
[2022-11-21] MEDS: ALBUTEROL SULF 2.5 MG/0.5ML(0.5%) NEB SOLN NEB SCH ×6 (02:00→22:35)
[2022-11-21 05:59] LABS: Basophils # (auto) 0 10 ^3/uL (0-0.2); Basophils % (auto) 0.1 % (0.0-2.0); Eosinophils # (auto) 0 10 ^3/uL (0-0.8); Hematocrit 31.4 % (41.0-53.0); Hemoglobin 10.5 g/dL (13.5-17.5); Lymphocytes # (auto) 0.6 10 ^3/uL (0.4-5.4); Lymphocytes % (auto) 9.1 % (10.0-50.0); Mean Corpuscular Hgb Conc. 33.4 g/dL (32.0-36.0); Mean Corpuscular Volume 89.8 fL (80.0-100.0); Monocytes # (auto) 0.1 10 ^3/uL (0-1.3); Monocytes % (auto) 1.9 % (0.0-12.0); Neutrophils % (auto) 88.9 % (37.0-80.0); Nucleated Red Blood Cells % 0.1 %; White Blood Cell 6.7 10^3/uL (4.4-10.8)
[2022-11-21 06:33] LABS: Albumin 3.6 g/dL (3.2-4.8); Alkaline Phosphatase 105 U/L (46-116); Anion Gap 3.6 (5-15); Aspartate Aminotransferase 11 U/L (13-40); BUN/Creatinine Ratio 21.5 (10.0-20.0); Bilirubin, Total 0.4 mg/dL (0.2-1.0); Blood Urea Nitrogen 14 mg/dL (9-23); Calcium 9.8 mg/dL (8.7-10.4); Carbon Dioxide 36.4 mmol/L (20-30); Chloride 99 mmol/L (98-107); Glucose 130 mg/dL (74-106); Potassium 4.8 mmol/L (3.5-5.1); Sodium 139 mmol/L (136-145); Total Protein 7.7 g/dL (5.7-8.2)
[2022-11-21 07:11] LABS: Alanine Aminotransferase < 9 U/L (7-40)
[2022-11-21] MEDS ORDERED: PANTOPRAZOLE 40 MG TAB PO SCH (10:00)
[2022-11-21] MEDS: ATORVASTATIN 20 MG TAB PO SCH (10:17)
[2022-11-21] MEDS: ALLOPURINOL 100 MG TAB PO SCH ×2 (10:17→22:13)
[2022-11-21] MEDS: ASPirin-EC 81 mg tab PO SCH (10:17)
[2022-11-21] MEDS: cefTRIAXone 1GM/50ML D5W 50 ML IV SCH (10:17)
[2022-11-21] MEDS: ENOXAPARIN SOD 40 MG/0.4 ML SYRINGE SC SCH (10:18)
[2022-11-21] MEDS: dilTIAZem 120MG ER CAP PO SCH (10:22)
[2022-11-21] MEDS: methylPREDNISolone SOD SUCC 40 MG/ML VL IV SCH ×2 (10:22→22:13)
[2022-11-21] MEDS: AZITHROMYCIN 500MG/ 250ML 250 ML IV SCH (11:35)
[2022-11-21] MEDS ORDERED: OMNIPAQUE 12mg/ml 500ml ORAL SOLUTION PO ONE (16:01)
[2022-11-21] MEDS ORDERED: TOLT1CAP29 PO (17:15)
[2022-11-21] MEDS ORDERED: CHOL20002 PO (17:15)
[2022-11-21] MEDS ORDERED: FERR325T20 PO (17:15)
[2022-11-21 19:13] LABS: COVID19 ANTIGEN SOFIA FIA NEGATIVE (NEGATIVE); Rapid Influenza A Negative (Negative); Rapid Influenza B Negative (Negative)
[2022-11-21] MEDS: risperiDONE 1 MG TAB PO SCH (19:58)
[2022-11-22] VITALS (16 sets, daily range): BP systolic 93–124; BP diastolic 42–49; PULSE 49–64; RESP 16–49; TEMP 97.4–98.1; O2SAT 94–100
[2022-11-22 06:06] LABS: INR 1.19 (0.9-1.15); Prothrombin Time 12.4 sec (9.3-11.8)
[2022-11-22 06:22] LABS: Basophils # (auto) 0 10 ^3/uL (0-0.2); Basophils % (auto) 0.3 % (0.0-2.0); Eosinophils # (auto) 0 10 ^3/uL (0-0.8); Hematocrit 32.6 % (41.0-53.0); Hemoglobin 10.7 g/dL (13.5-17.5); Lymphocytes # (auto) 0.7 10 ^3/uL (0.4-5.4); Lymphocytes % (auto) 7.1 % (10.0-50.0); Mean Corpuscular Hemoglobin 29.9 pg (28.0-32.0); Mean Corpuscular Hgb Conc. 32.9 g/dL (32.0-36.0); Monocytes # (auto) 0.5 10 ^3/uL (0-1.3); Monocytes % (auto) 5.1 % (0.0-12.0); Neutrophils # (auto) 9.1 10 ^3/uL (1.6-8.6); Neutrophils % (auto) 87.5 % (37.0-80.0); Red Blood Cells 3.58 10^6/uL (4.5-5.90); Red Cell Distribution Width 16.2 % (11.8-14.3); White Blood Cell 10.4 10^3/uL (4.4-10.8)
[2022-11-22] MEDS: IPRATROPIUM BROM 0.5 MG/2.5ML INH SOL NEB SCH ×6 (07:06→22:45)
[2022-11-22] MEDS: ALBUTEROL SULF 2.5 MG/0.5ML(0.5%) NEB SOLN NEB SCH ×6 (07:06→22:45)
[2022-11-22] MEDS: ENOXAPARIN SOD 40 MG/0.4 ML SYRINGE SC SCH (09:44)
[2022-11-22] MEDS: methylPREDNISolone SOD SUCC 40 MG/ML VL IV SCH ×2 (09:44→21:15)
[2022-11-22] MEDS: ALLOPURINOL 100 MG TAB PO SCH ×2 (09:45→21:15)
[2022-11-22] MEDS: ASPirin-EC 81 mg tab PO SCH (09:45)
[2022-11-22] MEDS: ATORVASTATIN 20 MG TAB PO SCH (09:45)
[2022-11-22] MEDS: dilTIAZem 120MG ER CAP PO SCH (09:45)
[2022-11-22] MEDS: cefTRIAXone 1GM/50ML D5W 50 ML IV SCH (09:46)
[2022-11-22] MEDS: AZITHROMYCIN 500MG/ 250ML 250 ML IV SCH (09:47)
[2022-11-22 10:04] LABS: Alanine Aminotransferase 11 U/L (7-40); Albumin 3.5 g/dL (3.2-4.8); Alkaline Phosphatase 94 U/L (46-116); Anion Gap 4.6 (5-15); Aspartate Aminotransferase 17 U/L (13-40); BUN/Creatinine Ratio 28.1 (10.0-20.0); Bilirubin, Total 0.4 mg/dL (0.2-1.0); Blood Urea Nitrogen 18 mg/dL (9-23); Calcium 10.1 mg/dL (8.5-10.1); Carbon Dioxide 34.4 mmol/L (20-30); Chloride 99 mmol/L (98-107); Cholesterol 105 mg/dL (< 200); Glucose 119 mg/dL (74-106); HDL Cholesterol 49 mg/dL (40-59); LDL Cholesterol 35 mg/dL (< 100); Magnesium 1.9 mg/dL (1.6-2.6); Potassium 4.7 mmol/L (3.5-5.1); Sodium 138 mmol/L (136-145); Total Protein 7.5 g/dL (5.7-8.2); Triglycerides 48 mg/dL (< 150)
[2022-11-22 11:38] LABS: Urine Amorphous Crystal FEW /hpf (None Seen); Urine Bacteria NONE SEEN /hpf (None Seen); Urine Blood Negative /uL (Negative); Urine Clarity HAZY (Clear); Urine Color Yellow (Yellow); Urine Protein, UAD Negative (Negative); Urine Specific Gravity 1.014 (1.001-1.035); Urine Urobilinogen Normal (Negative); Urine WBC <1 /hpf (0 - 3)
[2022-11-22] MEDS ORDERED: BARIUM SULFATE 98% 340 GM PWDR ONE (14:33)
[2022-11-22] MEDS ORDERED: EZ PAQUE SUSP 12OZ BTL ONE (14:33)
[2022-11-22] MEDS: Ensure HIGH Protein Chocolate 8oz Bottle PO SCH (20:00)
[2022-11-22] MEDS: risperiDONE 1 MG TAB PO SCH (20:16)
[2022-11-22] MEDS: D5W/SOD CHLO 0.9% 1,000 ML IV SCH (20:17)
[2022-11-23] VITALS (13 sets, daily range): BP systolic 101–115; BP diastolic 41–55; PULSE 50–95; RESP 16–25; TEMP 97.9–98.3; O2SAT 93–100
[2022-11-23] MEDS: ALBUTEROL SULF 2.5 MG/0.5ML(0.5%) NEB SOLN NEB SCH ×4 (05:49→18:47)
[2022-11-23] MEDS: IPRATROPIUM BROM 0.5 MG/2.5ML INH SOL NEB SCH ×4 (05:49→18:47)
[2022-11-23 05:54] LABS: Basophils # (auto) 0 10 ^3/uL (0-0.2); Eosinophils # (auto) 0 10 ^3/uL (0-0.8); Hematocrit 34.8 % (41.0-53.0); Hemoglobin 11.4 g/dL (13.5-17.5); Lymphocytes # (auto) 0.5 10 ^3/uL (0.4-5.4); Lymphocytes % (auto) 8.9 % (10.0-50.0); Mean Corpuscular Hemoglobin 29.5 pg (28.0-32.0); Mean Corpuscular Hgb Conc. 32.7 g/dL (32.0-36.0); Mean Corpuscular Volume 90.2 fL (80.0-100.0); Monocytes # (auto) 0.3 10 ^3/uL (0-1.3); Monocytes % (auto) 5.1 % (0.0-12.0); Neutrophils # (auto) 4.6 10 ^3/uL (1.6-8.6); Red Blood Cells 3.86 10^6/uL (4.5-5.90); Red Cell Distribution Width 15.8 % (11.8-14.3); White Blood Cell 5.4 10^3/uL (4.4-10.8)
[2022-11-23 05:58] LABS: Anion Gap 5.8 (5-15); Carbon Dioxide 32.2 mmol/L (20-30); Chloride 99 mmol/L (98-107); Potassium 3.8 mmol/L (3.5-5.1); Sodium 137 mmol/L (136-145)
[2022-11-23 05:59] LABS: Calcium 9.8 mg/dL (8.5-10.1)
[2022-11-23 06:04] LABS: BUN/Creatinine Ratio 19.3 (10.0-20.0); Blood Urea Nitrogen 11 mg/dL (9-23); Glucose 117 mg/dL (74-106)
[2022-11-23] MEDS: Ensure HIGH Protein Chocolate 8oz Bottle PO SCH ×3 (08:00→18:00)
[2022-11-23] MEDS: D5W/SOD CHLO 0.9% 1,000 ML IV SCH (08:50)
[2022-11-23] MEDS: methylPREDNISolone SOD SUCC 40 MG/ML VL IV SCH (10:06)
[2022-11-23] MEDS: cefTRIAXone 1GM/50ML D5W 50 ML IV SCH (10:07)
[2022-11-23] MEDS: ASPirin-EC 81 mg tab PO SCH (10:07)
[2022-11-23] MEDS: ENOXAPARIN SOD 40 MG/0.4 ML SYRINGE SC SCH (10:07)
[2022-11-23] MEDS: dilTIAZem 120MG ER CAP PO SCH (10:08)
[2022-11-23] MEDS: ATORVASTATIN 20 MG TAB PO SCH (10:08)
[2022-11-23] MEDS: ALLOPURINOL 100 MG TAB PO SCH (10:08)
[2022-11-23] MEDS: AZITHROMYCIN 500MG/ 250ML 250 ML IV SCH (10:08)
[2022-11-23] MEDS ORDERED: DOXY-346 PO (17:11)
[2022-11-23] MEDS ORDERED: PRED20TA2 PO (17:11)
[2022-11-23] MEDS: risperiDONE 1 MG TAB PO SCH (18:00)
== END 2022-11-23 19:05 | disposition home or self-care (01) | DRG 189 ==
LOC: EDBD 11:32 → ER 11:32 → TELE 18:46 → TELE-WESTW 11-21 17:33
PROVIDERS: ADMIT Internal Medicine; ATTEND Student in an Organized Health Care Education/Training Program
DX: J96.20 Acute and chronic respiratory failure, unspecified whether with hypoxia or hypercapnia (principal); J44.1 Chronic obstructive pulmonary disease with (acute) exacerbation; J90 Pleural effusion, not elsewhere classified; I10 Essential (primary) hypertension; R09.02 Hypoxemia; G30.9 Alzheimer's disease, unspecified; F02.80 Dementia in other diseases classified elsewhere, unspecified severity, without behavioral disturbance, psychotic disturbance, mood disturbance, and anxiety; R13.10 Dysphagia, unspecified; M1A.9XX0 Chronic gout, unspecified, without tophus (tophi); E78.5 Hyperlipidemia, unspecified; D63.8 Anemia in other chronic diseases classified elsewhere; I49.8 Other specified cardiac arrhythmias; I49.3 Ventricular premature depolarization; Z20.822 Contact with and (suspected) exposure to COVID-19; Z86.73 Personal history of transient ischemic attack (TIA), and cerebral infarction without residual deficits
CPT/HCPCS: 36415; 71045; 74230; 80048; 80053; 80061; 81001; 83605; 83735; 83880; 84443; 84484; 85025; 85610; 87426; 87804; 92507; 92610; 92611; 94640; 96374; 96375; 97110; 97116; 97163; 97530; 99291; G0378; J0696; J7042

== ENCOUNTER 2022-11-30 06:00 | Inpatient (IN) | payer OTHER, MEDICAID ==
[~2022-11-30] VITALS: Ht 177.8 cm; Wt 42.6 kg
[~2022-11-30 06:00] MED LIST changes: +CHOL20002 PO; +DOXY-346 PO; +FERR325T20 PO; +PRED20TA2 PO; +TOLT1CAP29 PO
[2022-11-30 06:48] LABS: Base Excess 9.9 mmol/L (-2.0-2.0)
[2022-11-30 06:52] VITALS: PULSE 79; RESP 20; O2SAT 92
[2022-11-30 07:09] LABS: Basophils # (auto) 0 10 ^3/uL (0-0.2); Basophils % (auto) 0.2 % (0.0-2.0); Eosinophils # (auto) 0 10 ^3/uL (0-0.8); Eosinophils % (auto) 0.3 % (0.0-7.0); Hematocrit 35.6 % (41.0-53.0); Hemoglobin 11.6 g/dL (13.5-17.5); Lymphocytes # (auto) 0.8 10 ^3/uL (0.4-5.4); Lymphocytes % (auto) 7.8 % (10.0-50.0); Mean Corpuscular Hemoglobin 29.8 pg (28.0-32.0); Mean Corpuscular Hgb Conc. 32.6 g/dL (32.0-36.0); Mean Corpuscular Volume 91.2 fL (80.0-100.0); Monocytes # (auto) 0.9 10 ^3/uL (0-1.3); Monocytes % (auto) 9.5 % (0.0-12.0); Neutrophils # (auto) 8.2 10 ^3/uL (1.6-8.6); Neutrophils % (auto) 82.2 % (37.0-80.0); Nucleated Red Blood Cells % 0.1 %; Red Blood Cells 3.91 10^6/uL (4.5-5.90); Red Cell Distribution Width 15.8 % (11.8-14.3); White Blood Cell 9.9 10^3/uL (4.4-10.8)
[2022-11-30 07:42] LABS: Alanine Aminotransferase 22 U/L (7-40); Albumin 3.3 g/dL (3.2-4.8); Alkaline Phosphatase 86 U/L (46-116); Anion Gap 8.3 (5-15); Aspartate Aminotransferase 25 U/L (13-40); Bilirubin, Total 0.3 mg/dL (0.2-1.0); Blood Urea Nitrogen 22 mg/dL (9-23); Calcium 9.2 mg/dL (8.5-10.1); Carbon Dioxide 27.7 mmol/L (20-30); Chloride 103 mmol/L (98-107); Glucose 98 mg/dL (74-106); Magnesium 2.1 mg/dL (1.6-2.6); Potassium 3.9 mmol/L (3.5-5.1); Sodium 139 mmol/L (136-145); Total Protein 6.5 g/dL (5.7-8.2)
[2022-11-30 07:46] LABS: COVID19 ANTIGEN SOFIA FIA POSITIVE (NEGATIVE)
[2022-11-30] MEDS ORDERED: IOHEXOL 350 MG/ML 100ML IJ ONE ×3 (08:13→10:47)
[2022-11-30] MEDS ORDERED: DexAMETHasone SOD PHOS 10MG/1ML VIAL INJ IV ONE (08:15)
[2022-11-30] MEDS ORDERED: AZITHROMYCIN 500MG/ 250ML 250 ML IV ONE (08:15)
[2022-11-30] MEDS ORDERED: MORPHINE SULFATE INJ 2 MG/ml SYRG IV PRN (12:45)
[2022-11-30] MEDS ORDERED: REMDESIVIR PER PHARMACY 0 ML IV SCH (12:45)
[2022-11-30] MEDS ORDERED: ACETAMINOPHEN 500 MG TAB PO PRN (12:45)
[2022-11-30] MEDS ORDERED: SODIUM CHLORIDE 0.9% 1,000 ML IV SCH ×2 (12:45→14:30)
[2022-11-30] MEDS ORDERED: DOCUSATE SOD 100 MG CAP PO PRN (12:45)
[2022-11-30] MEDS ORDERED: ENOXAPARIN SOD 40 MG/0.4 ML SYRINGE SC SCH (12:45)
[2022-11-30] MEDS ORDERED: ONDANSETRON HCL 4 MG/2 ML VIAL IV PRN (12:45)
[2022-11-30] MEDS ORDERED: SODIUM CHLORIDE 0.9% 500 ML IV ONE (14:30)
[2022-11-30] MEDS ORDERED: REMDESIVIR 200 MG in NS 210ml LOADING DOSE ADULT IV ONE (15:00)
[2022-11-30] MEDS: cefTRIAXone 1GM/50ML D5W 50 ML IV SCH (17:04)
[2022-11-30 18:02] VITALS: O2SAT 98
[2022-11-30 18:49] LABS: Urine Bacteria NONE SEEN /hpf (None Seen); Urine Blood 1+ /uL (Negative); Urine Clarity Clear (Clear); Urine Color Yellow (Yellow); Urine Mucus FEW (None Seen); Urine Protein, UAD 1+ (Negative); Urine Urobilinogen Normal (Negative); Urine WBC 3 /hpf (0 - 3)
[2022-11-30 18:52] LABS: Urine Specific Gravity > 1.050 (1.001-1.035)
[2022-11-30 18:56] VITALS: PULSE 58; RESP 36; O2SAT 96
[2022-11-30] MEDS ORDERED: ATROPINE SULF 1 MG/10ml SYR IV PRN (19:00)
[2022-11-30 19:30] VITALS: PULSE 52; RESP 28; O2SAT 98
[2022-11-30] MEDS: SODIUM CHLORIDE 0.9% 1,000 ML IV SCH (19:55)
[2022-11-30 21:51] VITALS: BP 106/37; PULSE 60; RESP 20; O2SAT 98
[2022-11-30] MEDS: ENOXAPARIN SOD 60 MG/0.6 ML SYRINGE SC SCH (22:17)
[2022-11-30 23:16] VITALS: BP 115/56; PULSE 48; PULSE 58; RESP 18; RESP 20; TEMP 98.4; O2SAT 96
[2022-12-01] VITALS (14 sets, daily range): BP systolic 113–127; BP diastolic 50–67; PULSE 42–87; RESP 18–22; TEMP 98.3–98.6; O2SAT 92–98
[2022-12-01] MEDS: ALBUTEROL SULF HFA 90MCG INH 200DOSE IN PRN ×3 (01:59→23:06)
[2022-12-01] MEDS: SODIUM CHLORIDE 0.9% 1,000 ML IV SCH (05:51)
[2022-12-01 07:34] LABS: Basophils # (auto) 0 10 ^3/uL (0-0.2); Eosinophils # (auto) 0 10 ^3/uL (0-0.8); Hematocrit 33.7 % (41.0-53.0); Hemoglobin 10.7 g/dL (13.5-17.5); Lymphocytes # (auto) 0.7 10 ^3/uL (0.4-5.4); Lymphocytes % (auto) 7.4 % (10.0-50.0); Mean Corpuscular Hemoglobin 29.2 pg (28.0-32.0); Mean Corpuscular Hgb Conc. 31.8 g/dL (32.0-36.0); Mean Corpuscular Volume 91.8 fL (80.0-100.0); Monocytes # (auto) 0.6 10 ^3/uL (0-1.3); Neutrophils # (auto) 7.7 10 ^3/uL (1.6-8.6); Neutrophils % (auto) 85.6 % (37.0-80.0); Red Blood Cells 3.67 10^6/uL (4.5-5.90); Red Cell Distribution Width 15.9 % (11.8-14.3)
[2022-12-01 08:41] LABS: Alanine Aminotransferase 12 U/L (7-40); Alkaline Phosphatase 68 U/L (46-116); Anion Gap 2.9 (5-15); Aspartate Aminotransferase 13 U/L (13-40); BUN/Creatinine Ratio 38.8 (10.0-20.0); Blood Urea Nitrogen 19 mg/dL (9-23); Calcium 9.1 mg/dL (8.5-10.1); Carbon Dioxide 31.1 mmol/L (20-30); Chloride 106 mmol/L (98-107); Glucose 82 mg/dL (74-106); Potassium 3.9 mmol/L (3.5-5.1); Sodium 140 mmol/L (136-145)
[2022-12-01 08:42] LABS: Bilirubin, Total 0.3 mg/dL (0.2-1.0); Total Protein 5.9 g/dL (5.7-8.2)
[2022-12-01] MEDS: cefTRIAXone 1GM/50ML D5W 50 ML IV SCH (09:07)
[2022-12-01] MEDS: DexAMETHasone SOD PHOS 10MG/1ML VIAL INJ IV SCH (09:07)
[2022-12-01] MEDS: PANTOPRAZOLE 40 MG/10 ML VIAL INJ IV SCH (09:07)
[2022-12-01] MEDS: ENOXAPARIN SOD 60 MG/0.6 ML SYRINGE SC SCH ×2 (09:08→21:48)
[2022-12-01] MEDS: ASCORBIC ACID 1,000 MG TAB PO SCH (09:21)
[2022-12-01] MEDS: ZINC SULFATE 220mg CAP or TAB PO SCH (09:21)
[2022-12-01] MEDS: CHOLECALCIFEROL (VITD3) 2,000 UNIT CAP/TAB PO SCH (09:22)
[2022-12-01 09:45] LABS: Triglycerides 58 mg/dL (< 150)
[2022-12-01 09:46] LABS: LDL Cholesterol 32 mg/dL (< 100)
[2022-12-01 09:47] LABS: Cholesterol 86 mg/dL (< 200); HDL Cholesterol 39 mg/dL (40-59)
[2022-12-01] MEDS: AZITHROMYCIN 500MG/ 250ML 250 ML IV SCH (11:10)
[2022-12-01] MEDS: REMDESIVIR 100mg 100 MG in SODIUM CHL 0.9% 230 ML IV SCH (16:01)
[2022-12-01] MEDS: ATORVASTATIN 20 MG TAB PO SCH (21:48)
[2022-12-02] VITALS (11 sets, daily range): BP systolic 124–143; BP diastolic 48–80; PULSE 35–65; RESP 16–20; TEMP 97.8–99.1; O2SAT 95–100
[2022-12-02] MEDS: SODIUM CHLORIDE 0.9% 1,000 ML IV SCH (00:16)
[2022-12-02] MEDS: cefTRIAXone 1GM/50ML D5W 50 ML IV SCH (08:50)
[2022-12-02] MEDS: DexAMETHasone SOD PHOS 10MG/1ML VIAL INJ IV SCH (08:50)
[2022-12-02] MEDS: ENOXAPARIN SOD 60 MG/0.6 ML SYRINGE SC SCH ×2 (08:51→21:10)
[2022-12-02] MEDS: PANTOPRAZOLE 40 MG/10 ML VIAL INJ IV SCH (08:51)
[2022-12-02 09:03] LABS: Albumin 2.6 g/dL (3.2-4.8); Alkaline Phosphatase 62 U/L (46-116); Anion Gap 3.9 (5-15); Aspartate Aminotransferase 30 U/L (13-40); Bilirubin, Total 0.3 mg/dL (0.2-1.0); Calcium 8.7 mg/dL (8.5-10.1); Carbon Dioxide 29.1 mmol/L (20-30); Chloride 106 mmol/L (98-107); Glucose 84 mg/dL (74-106); Sodium 139 mmol/L (136-145); Total Protein 5.6 g/dL (5.7-8.2)
[2022-12-02 09:04] LABS: Alanine Aminotransferase 18 U/L (7-40); BUN/Creatinine Ratio 32.6 (10.0-20.0); Blood Urea Nitrogen 15 mg/dL (9-23); Potassium 4.8 mmol/L (3.5-5.1)
[2022-12-02] MEDS: CHOLECALCIFEROL (VITD3) 2,000 UNIT CAP/TAB PO SCH (10:00)
[2022-12-02] MEDS: ASCORBIC ACID 1,000 MG TAB PO SCH (10:00)
[2022-12-02] MEDS: ZINC SULFATE 220mg CAP or TAB PO SCH (10:00)
[2022-12-02] MEDS: AZITHROMYCIN 500MG/ 250ML 250 ML IV SCH (10:10)
[2022-12-02] MEDS: D5W/SOD CHLO 0.9% 1,000 ML IV SCH ×2 (13:09→23:37)
[2022-12-02] MEDS: REMDESIVIR 100mg 100 MG in SODIUM CHL 0.9% 230 ML IV SCH (16:07)
[2022-12-02] MEDS: ATORVASTATIN 20 MG TAB PO SCH (21:24)
[2022-12-03] VITALS (11 sets, daily range): BP systolic 125–164; BP diastolic 56–65; PULSE 42–67; RESP 16–20; TEMP 97.8–98.8; O2SAT 91–100
[2022-12-03] MEDS: D5W/SOD CHLO 0.9% 1,000 ML IV SCH ×3 (04:45→20:45)
[2022-12-03 06:33] LABS: Alanine Aminotransferase 15 U/L (7-40); Albumin 2.8 g/dL (3.2-4.8); Alkaline Phosphatase 66 U/L (46-116); Anion Gap 0.6 (5-15); Aspartate Aminotransferase 17 U/L (13-40); BUN/Creatinine Ratio 26.9 (10.0-20.0); Blood Urea Nitrogen 14 mg/dL (9-23); Calcium 8.8 mg/dL (8.7-10.4); Carbon Dioxide 37.4 mmol/L (20-30); Chloride 102 mmol/L (98-107); Glucose 147 mg/dL (74-106); Potassium 3.7 mmol/L (3.5-5.1); Sodium 140 mmol/L (136-145)
[2022-12-03 06:34] LABS: Bilirubin, Total 0.3 mg/dL (0.2-1.0); Total Protein 5.6 g/dL (5.7-8.2)
[2022-12-03] MEDS: cefTRIAXone 1GM/50ML D5W 50 ML IV SCH (09:21)
[2022-12-03] MEDS: ENOXAPARIN SOD 60 MG/0.6 ML SYRINGE SC SCH ×2 (09:22→21:11)
[2022-12-03] MEDS: PANTOPRAZOLE 40 MG/10 ML VIAL INJ IV SCH (09:22)
[2022-12-03] MEDS: DexAMETHasone SOD PHOS 10MG/1ML VIAL INJ IV SCH (09:22)
[2022-12-03] MEDS: ASCORBIC ACID 1,000 MG TAB PO SCH ×2 (09:23→09:49)
[2022-12-03] MEDS: ZINC SULFATE 220mg CAP or TAB PO SCH ×2 (09:23→09:49)
[2022-12-03] MEDS: CHOLECALCIFEROL (VITD3) 2,000 UNIT CAP/TAB PO SCH ×2 (09:23→09:49)
[2022-12-03] MEDS: AZITHROMYCIN 500MG/ 250ML 250 ML IV SCH (11:44)
[2022-12-03] MEDS: ALBUTEROL SULF HFA 90MCG INH 200DOSE IN PRN (13:58)
[2022-12-03] MEDS: REMDESIVIR 100mg 100 MG in SODIUM CHL 0.9% 230 ML IV SCH (15:01)
[2022-12-03] MEDS: ATORVASTATIN 20 MG TAB PO SCH (21:22)
[2022-12-04] VITALS (10 sets, daily range): BP systolic 128–161; BP diastolic 59–82; PULSE 18–67; RESP 16–92; TEMP 97.6–98.7; O2SAT 90–100
[2022-12-04] MEDS: D5W/SOD CHLO 0.9% 1,000 ML IV SCH ×3 (03:13→23:57)
[2022-12-04] MEDS: cefTRIAXone 1GM/50ML D5W 50 ML IV SCH (08:45)
[2022-12-04] MEDS: ALBUTEROL SULF HFA 90MCG INH 200DOSE IN PRN ×2 (09:00→22:38)
[2022-12-04] MEDS: AZITHROMYCIN 500MG/ 250ML 250 ML IV SCH (09:58)
[2022-12-04] MEDS: ENOXAPARIN SOD 60 MG/0.6 ML SYRINGE SC SCH ×2 (09:59→20:53)
[2022-12-04] MEDS: PANTOPRAZOLE 40 MG/10 ML VIAL INJ IV SCH (09:59)
[2022-12-04] MEDS: DexAMETHasone SOD PHOS 10MG/1ML VIAL INJ IV SCH (09:59)
[2022-12-04] MEDS: ZINC SULFATE 220mg CAP or TAB PO SCH (10:00)
[2022-12-04] MEDS: ASCORBIC ACID 1,000 MG TAB PO SCH (10:00)
[2022-12-04] MEDS: CHOLECALCIFEROL (VITD3) 2,000 UNIT CAP/TAB PO SCH (10:00)
[2022-12-04] MEDS: REMDESIVIR 100mg 100 MG in SODIUM CHL 0.9% 230 ML IV SCH (15:00)
[2022-12-04] MEDS ORDERED: REMDESIVIR 100mg 100 MG in SODIUM CHL 0.9% 230 ML IV SCH (20:38)
[2022-12-04] MEDS: ATORVASTATIN 20 MG TAB PO SCH (21:10)
[2022-12-04 21:41] LABS: Basophils # (auto) 0 10 ^3/uL (0-0.2); Basophils % (auto) 0.2 % (0.0-2.0); Eosinophils # (auto) 0 10 ^3/uL (0-0.8); Hematocrit 38.7 % (41.0-53.0); Hemoglobin 12.6 g/dL (13.5-17.5); Lymphocytes # (auto) 0.7 10 ^3/uL (0.4-5.4); Lymphocytes % (auto) 9.3 % (10.0-50.0); Mean Corpuscular Hemoglobin 29.2 pg (28.0-32.0); Mean Corpuscular Hgb Conc. 32.6 g/dL (32.0-36.0); Mean Corpuscular Volume 89.7 fL (80.0-100.0); Monocytes # (auto) 0.2 10 ^3/uL (0-1.3); Monocytes % (auto) 2.4 % (0.0-12.0); Neutrophils # (auto) 7.1 10 ^3/uL (1.6-8.6); Neutrophils % (auto) 88.1 % (37.0-80.0); Nucleated Red Blood Cells % 0.1 %; Red Blood Cells 4.32 10^6/uL (4.5-5.90); Red Cell Distribution Width 15.6 % (11.8-14.3); White Blood Cell 8.1 10^3/uL (4.4-10.8)
[2022-12-04 21:55] LABS: Alanine Aminotransferase 21 U/L (7-40); Alkaline Phosphatase 80 U/L (46-116); Anion Gap 3.2 (5-15); Aspartate Aminotransferase 21 U/L (13-40); BUN/Creatinine Ratio 17.4 (10.0-20.0); Blood Urea Nitrogen 8 mg/dL (9-23); Calcium 8.8 mg/dL (8.7-10.4); Carbon Dioxide 34.8 mmol/L (20-30); Chloride 100 mmol/L (98-107); Glucose 135 mg/dL (74-106); Potassium 3.5 mmol/L (3.5-5.1); Sodium 138 mmol/L (136-145)
[2022-12-04 21:56] LABS: Bilirubin, Total 0.5 mg/dL (0.2-1.0); Total Protein 6.1 g/dL (5.7-8.2)
[2022-12-05] VITALS (8 sets, daily range): BP systolic 101–145; BP diastolic 55–76; PULSE 48–66; RESP 16–20; TEMP 98.2–98.7; O2SAT 92–100
[2022-12-05] MEDS: D5W/SOD CHLO 0.9% 1,000 ML IV SCH ×2 (03:56→16:10)
[2022-12-05] MEDS: ASCORBIC ACID 1,000 MG TAB PO SCH (10:00)
[2022-12-05] MEDS: CHOLECALCIFEROL (VITD3) 2,000 UNIT CAP/TAB PO SCH (10:00)
[2022-12-05] MEDS: ZINC SULFATE 220mg CAP or TAB PO SCH (10:00)
[2022-12-05] MEDS: PANTOPRAZOLE 40 MG/10 ML VIAL INJ IV SCH (10:15)
[2022-12-05] MEDS: cefTRIAXone 1GM/50ML D5W 50 ML IV SCH (10:15)
[2022-12-05] MEDS: DexAMETHasone SOD PHOS 10MG/1ML VIAL INJ IV SCH (10:15)
[2022-12-05] MEDS: AZITHROMYCIN 500MG/ 250ML 250 ML IV SCH (10:16)
[2022-12-05] MEDS: ENOXAPARIN SOD 60 MG/0.6 ML SYRINGE SC SCH ×2 (10:16→21:53)
[2022-12-05] MEDS: ATORVASTATIN 20 MG TAB PO SCH (21:53)
[2022-12-06] VITALS (10 sets, daily range): BP systolic 111–148; BP diastolic 56–98; PULSE 47–81; RESP 15–16; TEMP 97.7–98.6; O2SAT 94–99
[2022-12-06] MEDS: D5W/SOD CHLO 0.9% 1,000 ML IV SCH ×4 (00:54→20:45)
[2022-12-06] MEDS: ALBUTEROL SULF HFA 90MCG INH 200DOSE IN PRN (06:43)
[2022-12-06] MEDS: ZINC SULFATE 220mg CAP or TAB PO SCH (10:00)
[2022-12-06] MEDS: ASCORBIC ACID 1,000 MG TAB PO SCH (10:00)
[2022-12-06] MEDS: CHOLECALCIFEROL (VITD3) 2,000 UNIT CAP/TAB PO SCH (10:00)
[2022-12-06] MEDS: DexAMETHasone SOD PHOS 10MG/1ML VIAL INJ IV SCH (10:44)
[2022-12-06] MEDS: cefTRIAXone 1GM/50ML D5W 50 ML IV SCH (10:44)
[2022-12-06] MEDS: PANTOPRAZOLE 40 MG/10 ML VIAL INJ IV SCH (10:44)
[2022-12-06] MEDS: ENOXAPARIN SOD 60 MG/0.6 ML SYRINGE SC SCH ×2 (10:45→22:06)
[2022-12-06] MEDS: AZITHROMYCIN 500MG/ 250ML 250 ML IV SCH (11:43)
[2022-12-06 16:02] LABS: COVID19 ANTIGEN SOFIA FIA NEGATIVE (NEGATIVE)
[2022-12-06] MEDS: ATORVASTATIN 20 MG TAB PO SCH (20:10)
[2022-12-07] VITALS (7 sets, daily range): BP systolic 104–150; BP diastolic 50–87; PULSE 42–63; RESP 14–20; TEMP 98–98.9; O2SAT 93–99
[2022-12-07] MEDS: D5W/SOD CHLO 0.9% 1,000 ML IV SCH ×3 (04:45→22:00)
[2022-12-07] MEDS: cefTRIAXone 1GM/50ML D5W 50 ML IV SCH (09:00)
[2022-12-07] MEDS: CHOLECALCIFEROL (VITD3) 2,000 UNIT CAP/TAB PO SCH (10:00)
[2022-12-07] MEDS: AZITHROMYCIN 500MG/ 250ML 250 ML IV SCH (10:00)
[2022-12-07] MEDS: ZINC SULFATE 220mg CAP or TAB PO SCH (10:00)
[2022-12-07] MEDS: ASCORBIC ACID 1,000 MG TAB PO SCH (10:00)
[2022-12-07] MEDS: ENOXAPARIN SOD 60 MG/0.6 ML SYRINGE SC SCH ×2 (10:44→21:59)
[2022-12-07] MEDS: PANTOPRAZOLE 40 MG/10 ML VIAL INJ IV SCH (10:44)
[2022-12-07] MEDS: DexAMETHasone SOD PHOS 10MG/1ML VIAL INJ IV SCH (10:44)
[2022-12-07] MEDS ORDERED: BARIUM SULFATE 98% 340 GM PWDR ONE (16:53)
[2022-12-07] MEDS: ATORVASTATIN 20 MG TAB PO SCH (21:58)
[2022-12-08 00:27] VITALS: O2SAT 93
[2022-12-08] MEDS: D5W/SOD CHLO 0.9% 1,000 ML IV SCH (04:45)
[2022-12-08 05:00] VITALS: BP 142/56; PULSE 77; RESP 18; TEMP 98.2; O2SAT 93
[2022-12-08 08:00] VITALS: BP 138/93; PULSE 52; PULSE 63; PULSE 68; RESP 14; RESP 16; TEMP 36.8; O2SAT 97
[2022-12-08] MEDS ORDERED: ZINC220C10 PO (08:24)
[2022-12-08] MEDS ORDERED: METH4PAK PO (08:24)
[2022-12-08] MEDS ORDERED: CHOL20007 PO (08:24)
[2022-12-08] MEDS ORDERED: ALBUAER3 IN (08:24)
[2022-12-08] MEDS ORDERED: AZIT500T66 PO (08:24)
[2022-12-08] MEDS ORDERED: ASCO500C49 PO (08:24)
[2022-12-08 09:02] VITALS: TEMP 36.8
[2022-12-08 10:00] VITALS: O2SAT 94
== END 2022-12-08 11:45 | disposition home or self-care (01) | DRG 177 ==
LOC: ER 06:00 → EDBD 06:00 → EDUNIT# 12:46 → TELE 12:46 → TELE-EAST 21:35
PROVIDERS: ADMIT Nurse Practitioner Family; ATTEND Family Medicine
PROC: XW033E5 Introduction of Remdesivir Anti-infective into Peripheral Vein, Percutaneous Approach, New Technology Group 5 (ICD-10-PCS; principal; 2022-11-30)
PROC: 05HA33Z Insertion of Infusion Device into Left Brachial Vein, Percutaneous Approach (ICD-10-PCS; 2022-12-03)
PROC: B54NZZA Ultrasonography of Left Upper Extremity Veins, Guidance (ICD-10-PCS; 2022-12-03)
DX: U07.1 COVID-19 (principal); I50.31 Acute diastolic (congestive) heart failure; J12.82 Pneumonia due to coronavirus disease 2019; J96.21 Acute and chronic respiratory failure with hypoxia; I48.20 Chronic atrial fibrillation, unspecified; J44.1 Chronic obstructive pulmonary disease with (acute) exacerbation; J90 Pleural effusion, not elsewhere classified; J44.0 Chronic obstructive pulmonary disease with (acute) lower respiratory infection; D64.9 Anemia, unspecified; F03.90 Unspecified dementia, unspecified severity, without behavioral disturbance, psychotic disturbance, mood disturbance, and anxiety; I49.5 Sick sinus syndrome; E07.81 Sick-euthyroid syndrome; I11.0 Hypertensive heart disease with heart failure; R13.10 Dysphagia, unspecified; Z86.73 Personal history of transient ischemic attack (TIA), and cerebral infarction without residual deficits
CPT/HCPCS: 36415; 36600; 71045; 71275; 74230; 76536; 80053; 80061; 80162; 81001; 82306; 82542; 82728; 82805; 83036; 83605; 83615; 83735; 83880; 84436; 84443; 84480; 84484; 85025; 85379; 86141; 87040; 87081; 87426; 92610; 93005; 93306; 94640; 96365; 96375; C9113; G0378; J0696; J1100; J7042